=== PATIENT | female | born 1935 | race Caucasian/White ===

== ENCOUNTER 2016-09-08 09:29 | Inpatient (IN) ==
[2016-09-08] MEDS ORDERED: 0.9 % SODIUM CHLORIDE 1,000 ML IV ONE (10:08)
[2016-09-08] MEDS ORDERED: cefTRIAXone 1 GM in DEXTROSE 5% IN WATER 50 ML IV ONE ×2 (10:09→15:00)
[2016-09-08] MEDS ORDERED: DILTIAZEM 125 MG in 0.9 % SODIUM CHLORIDE 100 ML IV SCH (10:15)
[2016-09-08] MEDS ORDERED: FUROSEMIDE 40 MG/4 ML VIAL IV ONE (10:15)
[2016-09-08] MEDS ORDERED: DILTIAZEM 25 MG/5 ML VIAL IV ONE (10:50)
[2016-09-08 11:25] LABS: Basophils # (Auto) 0 K/mcL (0.0-0.3); Basophils % (Auto) 0.4 % (0.0-2.0); Eosinophils # (Auto) 0.1 K/mcL (0.0-0.7); Eosinophils % (Auto) 2.3 % (0.0-7.0); Lymphocytes # (Auto) 1.2 K/mcL (1.5-4.8); Lymphocytes % (Auto) 24.3 % (15.5-49.0); Mean Cell Volume 101.6 fL (80.0-100.0); Mean Corpuscular HGB Conc 33.6 g/dL (31.0-36.0); Mean Corpuscular Hemoglobin 34.1 pg (26.0-34.0); Monocytes # (Auto) 0.5 K/mcL (0.1-0.9); Platelet Count 187 K/mcL (140-440); RBC 3.87 M/mcL (4.00-5.20); Red Cell Distribution Width 13.7 % (11.5-14.5)
[2016-09-08 11:44] LABS: ALT/SGPT 9 U/l (0-40); Albumin 3.8 gm/dL (3.2-5.2); Albumin/Globulin Ratio 1.2 (1.0-2.3); Alkaline Phosphatase 102 U/L (39-117); Blood Urea Nitrogen 9 mg/dl (8-23)
[2016-09-08] MEDS ORDERED: DIGOXIN 500 MCG/2 ML AMPUL IV ONE (12:19)
--- NOTE | 2016-09-08 12:19 | Emergency Department Note ---
Skin/Abscess/FB HPI - General Chief complaint: Skin/Abscess/Foreign Body Stated complaint: Rash to chin, redness to eyes Time Seen by Provider: 09/08/16 09:59 Source: patient, RN notes reviewed, old records reviewed Mode of arrival: ambulatory Limitations: altered mental status - History of Present Illness HPI Narrative: 81-year-old female resident of [place] is brought over for history of rash on the face. She is unable to give me much meaningful history or review of system secondary to multiple mental issues- history is a combination of medical record review and her answers. It appears that she's had a red weeping rash in various locations on her face going into her left ear- she's been treated with a course of Bactrim and MetroGel over the last 2 weeks prior to coming in. She completed that course but it does not appear to have worked. The rash is worst at her chin and weeps yellowish liquid. Denies shortness of breath but is having worsening bilateral lower extremity edema. Complains of some bilateral toe pain. Cannot recall any trauma - Related Data Home Medications Medication Instructions Recorded Confirmed Aspirin [Lite Coat Aspirin] 325 mg PO DAILY 05/19/16 09/09/16 Baclofen [Lioresal] 10 mg PO HS 05/19/16 09/09/16 Cholestyramine/Aspartame 4 gm PO BID 05/19/16 09/09/16 [Prevalite Packet] Hydrochlorothiazide [Oretic] 12.5 mg PO DAILY 05/19/16 09/09/16 Hydrochlorothiazide [Oretic] 25 mg PO DAILY 05/19/16 09/09/16 LORazepam [Ativan] 0.5 mg PO BID 05/19/16 09/09/16 Levothyroxine [Synthroid] 150 mcg PO DAILY 05/19/16 09/09/16 Montelukast [Singular] 10 mg PO HS 05/19/16 09/09/16 Omeprazole 40 mg PO DAILY 05/19/16 09/09/16 Acetaminophen [Tylenol] 650 mg PO Q4-6HP PRN 09/09/16 09/09/16 Artificial Tears Drops 2 drop BOTH EYES BID 09/09/16 09/09/16 Calcium 600 + Vit D Tablet 600 mg PO DAILY 09/09/16 09/09/16 LORazepam 0.25 mg PO BIDP PRN 09/09/16 09/09/16 Magnesium Carbonate/Al Hydrox 15 ml PO Q4HP PRN 09/09/16 09/09/16 Nystatin [Nyata] 1 applic TOPICAL BIDP PRN 09/09/16 09/09/16 Polyethylene Glycol 3350 [Miralax] 17 gm PO HS 09/09/16 09/09/16 Previous Rx's Medication Instructions Recorded Ciprofloxacin/Dexameth Otic 4 gtt AU BID #7.5 ml 08/15/16 [Ciprodex Otic Suspension] Allergies Allergy/AdvReac Type Severity Reaction Status Date / Time Penicillins Allergy Unknown Unknown Verified 09/08/16 14:27 Review of Systems All systems ED: reviewed and negative except as stated. Past Medical History - Past Medical History Medical history: Reports: asthma, GERD, hypertension, thyroid disease, other ( incontinence) Surgical history ED: Reports: cataract, cholecystectomy, orthopedic, other (hip) , pacemaker/AICD Psychiatric history: Reports: schizophrenia - Social History smoking status: Unknown if ever smoked Alcohol use: Reports: Unknown Drug use: Reports: unknown Physical Exam Overweight female no acute distress resting comfortably. No cephalic atraumatic. Conjunctiva bilaterally injected with drainage bilateral lower eyelids, yellow viscous. Significant blepharitis with red flaky skin periorbital. Multiple large patches 10-15 cm in diameter varies places around her head neck and going into her right ear with erythematous confluent inflamed skin and weeping yellowish crust. There does appear to be some seborrhea content to some of these areas as well. Tender. Some of the areas with active drainage are cultured. No nasal discharge but some audible congestion. Oropharynx is pink and moist. Neck is supple without lymphadenopathy or thyromegaly. No carotid bruit. Heart is irregularly irregular rhythm tachycardic. Lungs are basically clear to auscultation bilaterally without wheezes rales rhonchi or respiratory distress abdomen is soft nontender nondistended. +2 radial pulse. +2-3 pedal edema bilaterally tender without erythema or chronic venous stasis changes. I do not see any weeping or lesions on the feet or ankles. Her toes have bilaterally onychmycosis. She is alert but unclear if completely oriented. She speaks slowly without dysarthria, this does appear to be her neurologic baseline - General Limitations: no limitations Course Vital Signs Temperature 96.9 F L 09/08/16 09:29 Pulse Rate 129 H 09/08/16 09:29 Respiratory Rate 16 09/08/16 09:29 Blood Pressure 132/72 09/08/16 09:29 Pulse Oximetry (%) 97 09/08/16 09:29 Temperature 97.6 F 09/09/16 04:00 Pulse Rate 104 H 09/08/16 19:40 Respiratory Rate 16 09/09/16 04:00 Blood Pressure 109/35 09/09/16 06:02 Pulse Oximetry (%) 98 09/09/16 06:02 Skin/Abscess/Foreign Body - Lab Data Lab results reviewed: Yes I reviewed the patient's lab results. Result diagrams: 09/09/16 03:55 09/09/16 03:55 Lab Results 09/08/16 09/08/16 09/08/16 Range/Units 10:35 10:35 10:35 WBC 5.0 (4.5-11.0) K/mcL RBC 3.87 L (4.00-5.20) M/mcL Hgb 13.2 (12.0-15.0) g/dL Hct 39.3 (36.0-48.0) % MCV 101.6 H (80.0-100.0) fL MCH 34.1 H (26.0-34.0) pg MCHC 33.6 (31.0-36.0) g/dL RDW 13.7 (11.5-14.5) % Plt Count 187 (140-440) K/mcL MPV 7.5 (7.4-10.4) fL Gran % 63.0 (38.0-78.0) % Lymph % (Auto) 24.3 (15.5-49.0) % [place] % (Auto) 10.0 (1.0-12.0) % Eos % (Auto) 2.3 (0.0-7.0) % Baso % (Auto) 0.4 (0.0-2.0) % Gran # 3.2 (1.8-8.0) K/mcL Lymph # 1.2 L (1.5-4.8) K/mcL [place] # 0.5 (0.1-0.9) K/mcL Eos # 0.1 (0.0-0.7) K/mcL Baso # 0 (0.0-0.3) K/mcL VBG Lactic Acid 1.5 (0.5-2.2) mmol/L Sodium 136 (133-145) mmol/L Potassium 3.9 (3.3-5.1) mmol/L Chloride 98 (96-108) mmol/L Carbon Dioxide 23 (22-30) mmol/L Anion Gap 15.0 (8-16) BUN 9 (8-23) mg/dl Creatinine 0.7 (0.6-1.1) mg/dl GFR Calculation 81 Glucose 86 (70-105) mg/dL Calcium 9.1 (8.6-10.4) mg/dl Total Bilirubin 0.6 (0.0-1.0) mg/dL AST 17 (0-37) U/l ALT 9 (0-40) U/l Alkaline Phosphatase 102 (39-117) U/L Troponin T (0-0.03) ng/ml C-Reactive Protein (0.0-0.8) mg/dl NT-Pro-B Natriuret Pep (0-450) pg/ml Total Protein 7.1 (5.9-8.4) gm/dL Albumin 3.8 (3.2-5.2) gm/dL Globulin 3.3 (2.2-3.7) gm/dL Albumin/Globulin Ratio 1.2 (1.0-2.3) 09/08/16 09/08/16 09/08/16 Range/Units 10:35 10:35 10:35 WBC (4.5-11.0) K/mcL RBC (4.00-5.20) M/mcL Hgb (12.0-15.0) g/dL Hct (36.0-48.0) % MCV (80.0-100.0) fL MCH (26.0-34.0) pg MCHC (31.0-36.0) g/dL RDW (11.5-14.5) % Plt Count (140-440) K/mcL MPV (7.4-10.4) fL Gran % (38.0-78.0) % Lymph % (Auto) (15.5-49.0) % [place] % (Auto) (1.0-12.0) % Eos % (Auto) (0.0-7.0) % Baso % (Auto) (0.0-2.0) % Gran # (1.8-8.0) K/mcL Lymph # (1.5-4.8) K/mcL [place] # (0.1-0.9) K/mcL Eos # (0.0-0.7) K/mcL Baso # (0.0-0.3) K/mcL VBG Lactic Acid (0.5-2.2) mmol/L Sodium (133-145) mmol/L Potassium (3.3-5.1) mmol/L Chloride (96-108) mmol/L Carbon Dioxide (22-30) mmol/L Anion Gap (8-16) BUN (8-23) mg/dl Creatinine (0.6-1.1) mg/dl GFR Calculation Glucose (70-105) mg/dL Calcium (8.6-10.4) mg/dl Total Bilirubin (0.0-1.0) mg/dL AST (0-37) U/l ALT (0-40) U/l Alkaline Phosphatase (39-117) U/L Troponin T < 0.01 (0-0.03) ng/ml C-Reactive Protein 0.3 (0.0-0.8) mg/dl NT-Pro-B Natriuret Pep 765.4 H (0-450) pg/ml Total Protein (5.9-8.4) gm/dL Albumin (3.2-5.2) gm/dL Globulin (2.2-3.7) gm/dL Albumin/Globulin Ratio (1.0-2.3) - EKG Data EKG attestation: Yes I reviewed and interpreted this EKG. EKG results narrative: EKG shows atrial fibrillation with rapid ventricular response with a rate of 142 Disposition Clinical Impression: Impetigo, Atrial fibrillation with RVR Summary: There appear to be 2 issues here: Rash and new onset atrial fibrillation with RVR 1. Rash appears to be impetigo versus erysipelas- this is severe and she is failed outpatient therapy with Bactrim and MetroGel. Start Rocephin. Culture sent. 2. New onset atrial fibrillation with RVR- attempted rate control first with Cardizem drip but this had no effect. Gave one dose of metoprolol and her blood pressure as well as rate decreased significantly to 110-120s from the 140s. She did not tolerate that well, so this was stopped and restarted digoxin loading dose [address] Julio who agreed to accept the patient for further care as an inpatient. Disposition: Xfer As Inpt ([facility]) Condition: Serious
[2016-09-08] MEDS: METOPROLOL TARTRATE 5 MG/5 ML VIAL IV SCH ×3 (12:20→12:29)
[2016-09-08] MEDS ORDERED: ACETAMINOPHEN 325 MG TABLET PO PRN (14:09)
[2016-09-08] MEDS ORDERED: VANCOMYCIN PER PHARMACY IV SCH (14:09)
[2016-09-08] MEDS ORDERED: ONDANSETRON 4 MG/2 ML VIAL IV PRN (14:09)
[2016-09-08] MEDS ORDERED: POTASSIUM CHLORIDE 20 MEQ PACKET PO PRN (14:09)
[2016-09-08] MEDS ORDERED: traZODone HCL 50 MG TABLET PO PRN (14:09)
[2016-09-08] MEDS ORDERED: MAGNESIUM SULFATE 2 GM/50 ML BAG IV PRN (14:09)
[2016-09-08] MEDS ORDERED: ACETAMINOPHEN 1,000 MG/100 ML BOTTLE IV PRN (14:09)
[2016-09-08 14:31] LABS: C-Reactive Protein 0.3 mg/dl (0.0-0.8)
[2016-09-08] MEDS ORDERED: VANCOMYCIN 1,000 MG in 0.9 % SODIUM CHLORIDE 250 ML IV SCH (15:00)
[2016-09-08] MEDS: DILTIAZEM 125 MG in 0.9 % SODIUM CHLORIDE 100 ML IV SCH (15:10)
[2016-09-08] MEDS: 0.9 % SODIUM CHLORIDE 10 ML SYRINGE IV SCH ×2 (15:54→21:33)
[2016-09-08] MEDS ORDERED: METOPROLOL TARTRATE 5 MG/5 ML VIAL IV ONE (17:01)
[2016-09-08] MEDS: METOPROLOL TARTRATE 5 MG/5 ML VIAL IV ONE ×2 (17:03→18:15)
--- NOTE | 2016-09-08 19:45 | Ultrasound Report ---
CLINICAL INFORMATION: Atrial fibrillation] vascular disease COMPARISON: None. TECHNIQUE: Carotid arteries were imaged in sagittal and transverse planes using 5 mHz linear probe: Doppler, color, and 2D. FINDINGS: See worksheet by the technologist for velocities in PACS Please correlate with CTA CT Angiography or MRA MR Angiography if surgery is contemplated. IMPRESSION: Both common, internal and external carotid arteries are widely patent. Fibrofatty and calcific plaque in both carotid bifurcation. Antegrade normal systolic blood flow in both vertebral arteries Interpreted and Authenticated by: Estrada English 09/08/16
[2016-09-08] MEDS ORDERED: FUROSEMIDE 20 MG/2 ML VIAL IV ONE ×2 (20:06→20:08)
[2016-09-08] MEDS ORDERED: SENNOSIDES/DOCUSATE SODIUM 1 TAB TABLET PO SCH (21:00)
[2016-09-08] MEDS: HEPARIN 5,000 UNIT/ML VIAL SQ SCH (21:32)
[2016-09-08] MEDS: DOCUSATE SODIUM 100 MG CAPSULE PO SCH (21:33)
[2016-09-08] MEDS: METOPROLOL SUCCINATE 50 MG TAB.XL.24H PO SCH (21:33)
[2016-09-09] MEDS ORDERED: 0.9 % SODIUM CHLORIDE 250 ML IV SCH ×2 (01:15→11:10)
[2016-09-09] MEDS: 0.9 % SODIUM CHLORIDE 10 ML SYRINGE IV SCH ×3 (05:15→21:39)
[2016-09-09] MEDS: DILTIAZEM 125 MG in 0.9 % SODIUM CHLORIDE 100 ML IV SCH (05:22)
[2016-09-09 05:54] LABS: Mean Cell Volume 102.8 fL (80.0-100.0); Mean Corpuscular HGB Conc 32.8 g/dL (31.0-36.0); Mean Corpuscular Hemoglobin 33.7 pg (26.0-34.0); Platelet Count 185 K/mcL (140-440); RBC 3.87 M/mcL (4.00-5.20); Red Cell Distribution Width 13.6 % (11.5-14.5)
[2016-09-09 06:15] LABS: ALT/SGPT 9 U/l (0-40); Albumin 3.5 gm/dL (3.2-5.2); Alkaline Phosphatase 105 U/L (39-117); Bilirubin,Direct < 0.2 mg/dL (0.0-0.3); Blood Urea Nitrogen 15 mg/dl (8-23); Gamma Glutamyl Transpeptidase 9 U/L (5-36); Magnesium 1.8 mg/dL (1.6-2.5); Uric Acid 5.2 mg/dL (2.5-8.0)
[2016-09-09 06:56] LABS: Eosinophils % (Manual) 1 % (0-7); Lymphocytes % 19 % (15-49); Macrocytosis 1+ (NONE SEEN); Monocytes % (Manual) 10 % (1-12); Platelet Estimate NORMAL (NORMAL); RBC Morphology ABNORM (NORMAL); Segmented Neutrophils % 70 % (38-78)
[2016-09-09] MEDS ORDERED: FUROSEMIDE 20 MG TABLET PO SCH (08:00)
--- NOTE | 2016-09-09 08:17 | History and Physical Report ---
DATE OF ADMISSION: 09/08/2016 PRIMARY CARE PHYSICIAN: Preston Almendarez DATE OF ADMISSION: 09/08/2016 REASON FOR ADMISSION: Weakness, facial and neck rash, atrial fibrillation with RVR. HISTORY OF CHIEF COMPLAINT: Tamiko is an 81-year-old who comes to [facility] ER with extensive rash around the neck, face and chest that started roughly a week to 10 days ago. The patient has associated crusting, oozing but denies fever, headache, nausea, vomiting. She has gotten progressively weak, increasing weight gain, along with lower extremity lymphedema. She also has exertional dyspnea. She was evaluated in the ER. Initial workup was significant for atrial fibrillation with RVR and heart rate around 150. She was started on diltiazem drip while cultures were obtained and she was started on vancomycin/Rocephin for impetigo. At the time of examination, the patient is alert. She was able to answer some of the questions. She denies sick contacts. She denies recent or remote herpes infection. Denies hematuria, diarrhea. She appears fairly distressed with generalized facial and neck rash. REVIEW OF SYSTEMS: Ten-point review of system was performed; negative except the ones discussed above. PAST MEDICAL HISTORY: Significant for: 1. Degenerative joint disease. 2. Anxiety disorder. 3. Hypertension. 4. Seasonal allergy disorder. 5. GERD. 6. 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 CURRENT MEDICATIONS: Aspirin 325. Baclofen 10. Cholestyramine 4 grams twice daily Hydrochlorothiazide 37.5 daily. Lorazepam 0.25 twice daily. thyroxine 150 mg daily. Montelukast 10. Omeprazole 40. Oxybutynin 5. She was also recently treated on ciprofloxacin and sulfamethoxazole for impetigo. ALLERGIES: Known to PENICILLIN. FAMILY HISTORY: Significant for myocardial infarction, coronary artery disease in mother who at age 59, along with a history of hypertension in mother. PHYSICAL EXAMINATION: GENERAL EXAMINATION: The patient is alert, responsive. BMI 27. Height 5 feet 6 inches. VITAL SIGNS: Blood pressure 130/74, respiration 18, temperature 98.7, pulse 145, improving to mid 90s after digoxin, metoprolol, diltiazem. Saturations 96 percent on room air. HEENT: Pupils symmetric. Oral cavity dry. Head normocephalic. Extensive honey-crusted, ayers-crusted lesions along with surrounding erythema and small vesicles involving bilateral cheeks and angle of jaw, anterior neck, and upper shoulder. NECK: Otherwise no lymphadenopathy or jugular venous distention. CHEST: S1, S2, tachycardia, irregular rhythm. ESM grade 1. Diminished breath sounds at bases. ABDOMEN: Soft, pendulous. LOWER EXTREMITY EXAMINATION: 2+ pitting edema from mid thigh all the way to the ankle. Otherwise, no cyanosis or clubbing. No joint swelling. SKIN: No suspicious lesions, other than impetigo lesions as described above. PSYCHIATRIC: Alert, cooperative, mild anxiety. NEURO: Nonfocal. Moving all 4 extremities. Normal higher function. LABS AND IMAGING: White count 5, hemoglobin 13.2, platelets 187. Lactic acid 1.5. Sodium 130, potassium 3.9, creatinine 0.7, BUN 9. LFTs unremarkable. BNP 765. ASSESSMENT AND PLAN: An 81-year-old admitted with atrial fibrillation with rapid ventricular response. 1. Atrial fibrillation with rapid ventricular response. Inadequate rate control achieved on diltiazem drip, along with digoxin and metoprolol. Wean diltiazem drip. Continue metoprolol. 2. Generalized edema. Rule out history of underlying systolic heart failure. Echocardiogram. Continue diuresis. 3. Facial impetigo, likely streptococcal or staphylococcus. Continue Rocephin and vancomycin. De-escalate based on culture sensitivity results. Continue adequate local hygiene and care. 4. Prior medical issues including: History of hypertension: Continue hydrochlorothiazide. Hypothyroidism: Continue thyroxine. Gastroesophageal reflux disease: Continue PPI. PLAN FOR TODAY: 1. Admit as inpatient. 2. Telemetry monitoring in light of atrial fibrillation with RVR. 3. Metoprolol for rate control. 4. Diuresis. 5. Echocardiogram. 6. Broad antibiotic coverage, along with wound care. AA:estrella Job ID: [id number] Doc ID: [id number] Len MUNIZ
[2016-09-09] MEDS ORDERED: cefTRIAXone 2 GM in DEXTROSE 5% IN WATER 50 ML IV SCH (09:00)
[2016-09-09] MEDS: HEPARIN 5,000 UNIT/ML VIAL SQ SCH ×2 (09:00→21:34)
[2016-09-09] MEDS: METOPROLOL SUCCINATE 50 MG TAB.XL.24H PO SCH ×2 (09:00→21:34)
[2016-09-09] MEDS: DOCUSATE SODIUM 100 MG CAPSULE PO SCH ×2 (09:00→21:34)
--- NOTE | 2016-09-09 11:06 | Internal Med Progress Note ---
Medical - PN: Subj Patient information: Note initiated : 09/09/16 at 11:03 am Service Date, if different from initiated Date: [] Patient: Tamiko Mendoza 81 y/o F admitted on 09/08/16 for Rash to Chin, Redness to Eyes/AFib w/ RVR. Chief Complaint: [] Interval history: 09/08-patient admitted with A. fib RVR/facial erysipelas/cellulitis. Started on diltiazem drip however inadequate response and subsequently improved with IV digoxin and metoprolol. Admitted to telemetry. On IV vancomycin/Rocephin for empiric streptococcal/MRSA coverage. 09/09-patient doing well. Converted to sinus rhythm around 3 AM. Transfer to medical floor. Continue wound care/antibiotic coverage. Erysipelas improved significantly. no overnight fever chills nausea vomiting or concerns per nursing staff - Constitutional Vitals: Vital Signs Temp Pulse Resp BP Pulse Ox 99.0 F 69 16 115/47 95 09/09/16 07:54 09/09/16 07:54 09/09/16 07:54 09/09/16 07:54 09/09/16 07:54 Period Temp Pulse Resp BP Sys/Huang Pulse Ox Last 24 Hr 97.6 F-99.0 F 69-104 16-18 94-172/35-157 86-98 Intake and Output 09/08/16 09/09/16 09/09/16 21:59 05:59 13:59 Intake Total 617 / 617 272 / 272 50 / 50 Output Total 950 / 950 1525 / 1525 Balance -333 / -333 -1253 / -1253 50 / 50 Weight 194 lb 9.6 oz 194 lb 9.6 oz Patient Weight 09/10/16 05:59 Weight 194 lb 9.6 oz Intake & Output: Intake & Output 09/08/16 09/09/16 09/09/16 21:59 05:59 13:59 Intake Total 617 / 617 272 / 272 50 / 50 Output Total 950 / 950 1525 / 1525 Balance -333 / -333 -1253 / -1253 50 / 50 Weight 194 lb 9.6 oz 194 lb 9.6 oz Intake: IV 337 / 337 122 / 122 50 / 50 Sodium Chloride 0.9% 250 67 / 67 ml @ 20 mls/hr IV . [id number] [facility] Rx#: [id number] Cardizem 125 mg In Sodium 37 / 37 55 / 55 Chloride 0.9% 100 ml @ 5 MG/HR 5 mls/hr IV Q12H [facility] Rx#:[id number] Vancomycin 1,000 mg In 250 / 250 Sodium Chloride 0.9% 250 ml @ 250 mls/hr IV Q24H [facility] Rx#:[id number] Rocephin 1 gm In Dextrose 50 / 50 5% in Water 50 ml @ 100 mls/hr IV ONCE ONE Rx#: [id number] Rocephin 2 gm In Dextrose 50 / 50 5% in Water 50 ml @ 100 mls/hr IV Q24H [facility] Rx#: [id number] Oral 280 / 280 150 / 150 Output: Urine Catheter Amount 1525 / 1525 Void Amount 950 / 950 Other: Meal Dinner Percent of Meal Consumed 75% Feeding Ability Assist with Tray Set Up # Bowel Movements 1 1 General appearance: cooperative, no acute distress Exam: ayers honey crust lesionthe nasolabial fold neck and face No lymphedema Diminished breath sounds bases nonlabored breathing normal sinus rhythm Medical - PN: Obj Da - Labs CBC & Chem 7: 09/09/16 03:55 09/09/16 03:55 Labs: Abnormal Lab Results 09/09/16 09/09/16 03:55 03:55 RBC 3.87 L MCV 102.8 H RBC Morphology Abnorm A Macrocytosis 1+ A Glucose 113 H Meds: Medications Acetaminophen (Tylenol) 650 mg PO Q4-6HP PRN PRN Reason: PAIN/FEVER > 101 Last Admin: 09/09/16 01:23 Dose: 650 mg Docusate Sodium (Colace) 100 mg PO BID [facility] Last Admin: 09/09/16 09:00 Dose: 100 mg Furosemide (Lasix) 20 mg PO BIDD [facility] Last Admin: 09/09/16 09:00 Dose: 20 mg Heparin Sodium (Porcine) (Heparin) 5,000 unit SQ Q12 [facility] Last Admin: 09/09/16 09:00 Dose: 5,000 unit Diltiazem HCl 125 mg/ Sodium (Chloride) 125 mls @ 5 mls/hr IV Q12H M[facility]UGETA; 5 MG/HR PRN Reason: Protocol Last Admin: 09/09/16 05:22 Dose: Not Given Magnesium Sulfate (Magnesium Sulfate) 2 gm in 50 mls @ 50 mls/hr IV UD PRN PRN Reason: MG = or < 1.7 Acetaminophen (Ofirmev) 1,000 mg in 100 mls @ 200 mls/hr IV Q6HP PRN PRN Reason: PAIN/FEVER > 101 Ceftriaxone Sodium 2 gm/ (Dextrose) 50 mls @ 100 mls/hr IV Q24H [facility] Last Infusion: 09/09/16 11:02 Dose: Infused Vancomycin HCl 1,000 mg/ (Sodium Chloride) 250 mls @ 250 mls/hr IV Q24H [facility] Last Infusion: 09/08/16 17:40 Dose: Infused Sodium Chloride (Sodium Chloride 0.9%) 250 mls @ 20 mls/hr IV .[id number] [facility] Last Infusion: 09/09/16 05:19 Dose: Infused Metoprolol Succinate (Toprol Xl) 50 mg PO BID [facility] Last Admin: 09/09/16 09:00 Dose: 50 mg Ondansetron HCl (Zofran) 4 mg IV Q4-6HP PRN PRN Reason: Nausea And Vomiting Potassium Chloride (Klor-Con) 40 meq PO DAILYP PRN PRN Reason: K+ < 3.5 Senna/Docusate Sodium (Senna Plus Tablet) 1 tab PO HS [facility] Last Admin: 09/08/16 21:33 Dose: 1 tab Sodium Chloride (Saline Flush) 10 ml IV Q8 [facility] Last Admin: 09/09/16 05:15 Dose: 10 ml Trazodone HCl (Desyrel) 50 mg PO HSP PRN PRN Reason: Insomnia Vancomycin HCl (Vancomycin Per Pharmacy) 1 order IV [facility] Medical - PN: A/P - Time Spent With Patient Total time spent is greater than 50% in coordination of care (as documented) at patient's floor/unit and/or counseling patient: 15 - 24 minutes (1) Atrial fibrillation with RVR Status: Acute Assessment and plan: * atrial fibrillation with RVR-converted to sinus rhythm with digoxin/ metoprolol. unclear onset. No prior history of A. fib. * facial erysipelas-on antibiotic coverage for empiric strep/staph on vancomycin /Rocephin. Wound care consulted * history of CAD on aspirin * Hypertension on hydrochlorothiazide * Hypothyroidism on levothyroxin * Anxiety disorder - Ativan * DVT prophylaxis on heparin Plan * antibiotic coverage * Wound care consult * Transfer to medical floor * pre-existing medical condition management as above * Possible discharge in 24 hours Current Visit: Yes Medical - PN: Qual - VTE Deep Vein Thrombosis/Pulmonary Embolism Present on Admission: No
[2016-09-09] MEDS ORDERED: VANCOMYCIN PER PHARMACY IV SCH (11:10)
[2016-09-09] MEDS ORDERED: traZODone HCL 50 MG TABLET PO PRN (11:10)
[2016-09-09] MEDS ORDERED: ACETAMINOPHEN 1,000 MG/100 ML BOTTLE IV PRN (11:10)
[2016-09-09] MEDS ORDERED: POTASSIUM CHLORIDE 20 MEQ PACKET PO PRN (11:10)
[2016-09-09] MEDS ORDERED: MAGNESIUM SULFATE 2 GM/50 ML BAG IV PRN (11:10)
[2016-09-09] MEDS ORDERED: ONDANSETRON 4 MG/2 ML VIAL IV PRN (11:10)
[2016-09-09] MEDS ORDERED: ACETAMINOPHEN 325 MG TABLET PO PRN (11:10)
[2016-09-09] MEDS: VANCOMYCIN 1,000 MG in 0.9 % SODIUM CHLORIDE 250 ML IV SCH (14:56)
[2016-09-09] MEDS ORDERED: DILTIAZEM 125 MG in 0.9 % SODIUM CHLORIDE 100 ML IV PRN (15:00)
[2016-09-09] MEDS: FUROSEMIDE 20 MG TABLET PO SCH (15:09)
[2016-09-09] MEDS: SENNOSIDES/DOCUSATE SODIUM 1 TAB TABLET PO SCH (21:34)
[2016-09-09] MEDS: LORazepam 0.5 MG TABLET PO SCH (21:34)
[2016-09-10] MEDS: 0.9 % SODIUM CHLORIDE 10 ML SYRINGE IV SCH ×3 (05:12→21:58)
[2016-09-10 05:52] LABS: Mean Cell Volume 102.3 fL (80.0-100.0); Mean Corpuscular HGB Conc 33.3 g/dL (31.0-36.0); Mean Corpuscular Hemoglobin 34.1 pg (26.0-34.0); Platelet Count 179 K/mcL (140-440); RBC 3.63 M/mcL (4.00-5.20); Red Cell Distribution Width 13.7 % (11.5-14.5)
[2016-09-10 06:28] LABS: ALT/SGPT 20 U/l (0-40); Albumin 3.8 gm/dL (3.2-5.2); Albumin/Globulin Ratio 1.3 (1.0-2.3); Alkaline Phosphatase 106 U/L (39-117); Bilirubin,Direct < 0.2 mg/dL (0.0-0.3); Blood Urea Nitrogen 20 mg/dl (8-23); Gamma Glutamyl Transpeptidase 24 U/L (5-36); Magnesium 1.7 mg/dL (1.6-2.5); Uric Acid 5.1 mg/dL (2.5-8.0)
[2016-09-10] MEDS: FUROSEMIDE 20 MG TABLET PO SCH ×2 (07:32→16:19)
[2016-09-10 07:41] LABS: Eosinophils % (Manual) 4 % (0-7); Lymphocytes % 38 % (15-49); Macrocytosis 1+ (NONE SEEN); Monocytes % (Manual) 13 % (1-12); Platelet Estimate NORMAL (NORMAL); RBC Morphology ABNORM (NORMAL); Segmented Neutrophils % 45 % (38-78)
--- NOTE | 2016-09-10 07:52 | Echocardiogram Report ---
ECHOCARDIOGRAM: 2-D and M-mode echocardiography with cardiac Doppler and color flow imaging were performed with a [employer] Aplio MX. Indication is heart failure. A diagnostic M-mode tracing of the LV and mitral valve could not be obtained. Both atria appeared mildly enlarged. RV and LV cavity size appeared normal. LV wall thickness appeared mildly increased. Systolic performance appeared normal. Estimated ejection fraction is 55-60%. Aortic root diameter appeared normal. The aortic valve appeared trileaflet and normal. There was no evidence for aortic stenosis or aortic regurgitation by Doppler interrogation. The mitral and tricuspid valves appeared unremarkable. Doppler interrogation of LV inflow disclosed normal ''e'' wave dominance and normal early diastolic deceleration time. There was no evidence for mitral regurgitation. Pulmonary venous interrogation disclosed ''d'' wave dominance indicating elevated pulmonary wedge pressure. The pulmonic valve was not visualized. Pulmonary artery acceleration time appeared normal. There was no evidence for pulmonic stenosis or pulmonic regurgitation. Tricuspid regurgitation, probably mild (1+), was demonstrated. No intracardiac shunting was appreciated. There was no evidence for pericardial effusion. The IVC was borderline dilated and varied mildly with the respiratory cycle. Rough calculated estimate of PA systolic pressure is mildly elevated at 40 mmHg. Sinus rhythm, rate 60, was present. CONCLUSION:Mild concentric LVH with normal systolic performance. Mild LA enlargement, elevated pulmonary wedge/mild and probably passive pulmonary hypertension, mild RA enlargement and possible raised CVP. Since previous study 09/21/2010, presence of LVH and biatrial enlargement are appreciated. (See accompanying M-mode and Doppler reports for quantitation.) ECHOCARDIOGRAPHY M-MODE CALCULATIONS: HT: 66'' WT: 194 BSA: 1.97 m2 NORMALS AORTA: AORTIC ROOT 3.0 2.0-3.7 cm LEFT ATRIUM 3.5 1.9-4.0 cm MITRAL VALVE: EXCURSION -- 1.9-2.7 cm EPSS -- <0.5 cm LT VENTRICLE: LVID (ED) -- 3.5-5.7 cm LVID (ES) -- SEPTAL THICKNESS -- 0.6-1.1 cm SEPTAL EXCURSION -- 0.3-0.8 cm LVPW THICKNESS -- 0.6-1.1 cm LVPW EXCURSION -- 0.9-1.4 cm MINOR AXIS FS -- 25%-40% RT VENTRICLE: RVID (ED) -- 0.9-2.6 cm(up to 3cm if LLD) QUALITATIVE DOPPLER FLOW STUDIES MITRAL VALVE -- AORTIC VALVE -- TRICUSPID VALVE TR, probably mild (1+) PULMONIC VALVE -- QUANTITATIVE DOPPLER FLOW STUDIES SAMPLE SITES VELOCITIES PEAK PRESSURE VALVE AREA and/or VALVE WINDOW (PEAK,M/SEC) DROP (GRADIENT) PRESSURE HALF-TIME MV (Diastole) 1.1 0.7 -- -- MV (Systole) -- -- -- AO (Diastole) -- -- -- AO (Systole) 1.4 -- -- TV (Systole) 2.5 -- -- PV (Systole) 1.0 -- -- PV (Diastole) -- LWG:samuel Job ID: [id number] Doc ID: [id number] Gama Braswell MD
--- NOTE | 2016-09-10 08:39 | General Surgery Consult Note ---
History of Present Illness Patient information: Note initiated : 09/10/16 at 8:35 am Service Date, if different from initiated Date: [] Patient: Tamiko Mendoza 81 y/o F admitted on 09/08/16 for Rash to Chin, Redness to Eyes/AFib w/ RVR. Chief Complaint: [] Consult date: 09/10/16 Requesting physician: Len Bhagat History of present illness: I saw this patient with [place] RN, Inpatient wound care nurse. I was consulted for evaluation of skin lesions / wounds of head and neck area. I went through EHR notes from ER physician. This is an elderly lady residing at an [facility] and has multiple medical issues, which are being addressed appropriately. She c/o persistent itching and scratching of face, eyes, Head and neck, especially scalp and over and behind both ears. Medications and Allergies Home Medications Medication Instructions Recorded Confirmed Type Aspirin [Lite Coat Aspirin] 325 mg PO DAILY 05/19/16 09/09/16 History Baclofen [Lioresal] 10 mg PO HS 05/19/16 09/09/16 History Cholestyramine/Aspartame 4 gm PO BID 05/19/16 09/09/16 History [Prevalite Packet] Hydrochlorothiazide [Oretic] 12.5 mg PO DAILY 05/19/16 09/09/16 History Hydrochlorothiazide [Oretic] 25 mg PO DAILY 05/19/16 09/09/16 History LORazepam [Ativan] 0.5 mg PO BID 05/19/16 09/09/16 History Levothyroxine [Synthroid] 150 mcg PO DAILY 05/19/16 09/09/16 History Montelukast [Singular] 10 mg PO HS 05/19/16 09/09/16 History Omeprazole 40 mg PO DAILY 05/19/16 09/09/16 History Ciprofloxacin/Dexameth Otic 4 gtt AU BID #7.5 ml 08/15/16 09/09/16 Rx [Ciprodex Otic Suspension] Acetaminophen [Tylenol] 650 mg PO Q4-6HP PRN 09/09/16 09/09/16 History Artificial Tears Drops 2 drop BOTH EYES BID 09/09/16 09/09/16 History Calcium 600 + Vit D Tablet 600 mg PO DAILY 09/09/16 09/09/16 History LORazepam 0.25 mg PO BIDP PRN 09/09/16 09/09/16 History Magnesium Carbonate/Al Hydrox 15 ml PO Q4HP PRN 09/09/16 09/09/16 History Nystatin [Nyata] 1 applic TOPICAL BIDP PRN 09/09/16 09/09/16 History Polyethylene Glycol 3350 [Miralax] 17 gm PO HS 09/09/16 09/09/16 History Allergies Allergy/AdvReac Type Severity Reaction Status Date / Time [place] Allergy Intermediate Hives Verified 09/09/16 15:42 Penicillins Allergy Unknown Unknown Verified 09/08/16 14:27 Exam Temp Pulse Resp BP Pulse Ox 98.2 F 68 18 165/83 94 09/10/16 07:02 09/10/16 07:08 09/10/16 07:02 09/10/16 07:02 09/10/16 07:08 - General physical appearance well developed, well nourished, no distress, no pain, other (UNKEMPT, LONG FINGERNAILS with crust, fugus under nails and nail beds SIMILAR to the crust over her face, scalp,hair, ramos area, ears and around eyes and eyebrows. She has conjuctivitis, but NORMAL vision. ) - Eyes PERRL, normal ocular movement, other (Blepharits and mild bilateral conjuctival irritation. INTACT vision.) - ENT no congestion, other (Crusted skin of both external ears and behind ears. NO mastoid tenderness. ) - Head Head exam IM: Present: atraumatic, normal inspection, normocephalic - Neck no masses, no bruits, trachea midline, no venous distension - Cardiovascular Cardiovascular exam IM: Present: irregular rhythm - Respiratory normal respiratory effort, clear to auscultation - Abdomen Abdomen: Present: soft, non tender, bowel sounds - Integumentary Present: other (DERMATITIS HEAD AND NECK AND SKIN FOLDS HAIR AND HAIR LINES, EAR LOBES ( FUNGAL ) SCALP CAPITIS ) - Neurologic Present: normal coordination, other (MOVES ALL EXTREMITIES. ) - Musculoskeletal Present: normal posture Results - Labs 09/10/16 04:35 09/10/16 04:35 Abnormal lab results 09/10/16 Range/Units 04:35 WBC 4.3 L (4.5-11.0) K/mcL RBC 3.63 L (4.00-5.20) M/mcL MCV 102.3 H (80.0-100.0) fL MCH 34.1 H (26.0-34.0) pg Monocytes % (Manual) 13 H (1-12) % RBC Morphology Abnorm A (NORMAL) Macrocytosis 1+ A (NONE SEEN) Diabetes panel 09/10/16 Range/Units 04:35 Sodium 140 (133-145) mmol/L Potassium 3.5 (3.3-5.1) mmol/L Chloride 103 (96-108) mmol/L Carbon Dioxide 24 (22-30) mmol/L BUN 20 (8-23) mg/dl Creatinine 0.6 (0.6-1.1) mg/dl Glucose 94 (70-105) mg/dL Calcium 8.9 (8.6-10.4) mg/dl AST 26 (0-37) U/l ALT 20 (0-40) U/l Alkaline Phosphatase 106 (39-117) U/L Total Protein 6.8 (5.9-8.4) gm/dL Albumin 3.8 (3.2-5.2) gm/dL Triglycerides 76 (<150) mg/dl Calcium panel 09/10/16 Range/Units 04:35 Calcium 8.9 (8.6-10.4) mg/dl Phosphorus 3.0 (2.7-4.5) mg/dL Albumin 3.8 (3.2-5.2) gm/dL Pituitary panel 09/10/16 Range/Units 04:35 Sodium 140 (133-145) mmol/L Potassium 3.5 (3.3-5.1) mmol/L Chloride 103 (96-108) mmol/L Carbon Dioxide 24 (22-30) mmol/L BUN 20 (8-23) mg/dl Creatinine 0.6 (0.6-1.1) mg/dl Glucose 94 (70-105) mg/dL Calcium 8.9 (8.6-10.4) mg/dl Adrenal panel 09/10/16 Range/Units 04:35 Sodium 140 (133-145) mmol/L Potassium 3.5 (3.3-5.1) mmol/L Chloride 103 (96-108) mmol/L Carbon Dioxide 24 (22-30) mmol/L BUN 20 (8-23) mg/dl Creatinine 0.6 (0.6-1.1) mg/dl Glucose 94 (70-105) mg/dL Calcium 8.9 (8.6-10.4) mg/dl Total Bilirubin 0.5 (0.0-1.0) mg/dL AST 26 (0-37) U/l ALT 20 (0-40) U/l Alkaline Phosphatase 106 (39-117) U/L Total Protein 6.8 (5.9-8.4) gm/dL Albumin 3.8 (3.2-5.2) gm/dL All other labs normal. Assessment and Plan (1) Dermatitis due to food skin contact Recommend: ELECTIVE OUT PATIENT DERMATOLOGY EVALUATION; For now: Trim all finger nails. Antifungal soap for head to toe body washes Hibiclens or Chlorhexidine head to toe body wash or showers daily Clean and wash face with chlorhexidine soaked wash cloth three to four times a day. Clean cotton sheets and clothes. Will continue to see her again as appropriate. Status: Chronic Priority: Medium (2) Dermatitis due to oils or greases Status: Acute (3) Dermatitis fungal Status: Acute (4) Otitis externa Status: Acute
--- NOTE | 2016-09-10 09:30 | Internal Med Progress Note ---
Medical - PN: Subj Patient information: Note initiated : 09/10/16 at 9:26 am Service Date, if different from initiated Date: [] Patient: Tamiko Mendoza 81 y/o F admitted on 09/08/16 for Rash to Chin, Redness to Eyes/AFib w/ RVR. Chief Complaint: [] Interval history: 09/08-patient admitted with A. fib RVR/facial erysipelas/cellulitis. Started on diltiazem drip however inadequate response and subsequently improved with IV digoxin and metoprolol. Admitted to telemetry. On IV vancomycin/Rocephin for empiric streptococcal/MRSA coverage. 09/09-patient doing well. Converted to sinus rhythm around 3 AM. Transfer to medical floor. Continue wound care/antibiotic coverage. Erysipelas improved significantly. no overnight fever chills nausea vomiting or concerns per nursing staff 09/10-staph aureus on cultures. wound care ongoing. Hibiclens wash/IV antibiotics. De-escalate antibiotics based on culture sensitivities. No overnight fever chills. Patient in sinus rhythm. Stabilizing hemodynamics and no concerns per staff - Constitutional Vitals: Vital Signs Temp Pulse Resp BP Pulse Ox 98.2 F 68 18 165/83 94 09/10/16 07:02 09/10/16 07:08 09/10/16 07:02 09/10/16 07:02 09/10/16 07:08 Period Temp Pulse Resp BP Sys/Huang Pulse Ox Last 24 Hr 97.6 F-98.6 F 64-73 16-20 132-165/65-83 94-98 Intake and Output 09/09/16 09/10/16 09/10/16 21:59 05:59 13:59 Intake Total 250 / 250 250 / 250 240 / 240 Output Total 950 / 950 225 / 225 100 / 100 Balance -700 / -700 25 / 25 140 / 140 Weight 195 lb Intake & Output: Intake & Output 09/09/16 09/10/16 09/10/16 21:59 05:59 13:59 Intake Total 250 / 250 250 / 250 240 / 240 Output Total 950 / 950 225 / 225 100 / 100 Balance -700 / -700 25 / 25 140 / 140 Weight 195 lb Intake: IV 250 / 250 Vancomycin 1,000 mg In 250 / 250 Sodium Chloride 0.9% 250 ml @ 250 mls/hr IV Q24H [facility] Rx#:[id number] Oral 250 / 250 240 / 240 Output: Urine Catheter Amount 500 / 500 Void Amount 450 / 450 225 / 225 100 / 100 Other: Meal Breakfast Percent of Meal Consumed 100% # Voids 1 General appearance: cooperative, no acute distress Exam: alert oriented nonlabored breathing Nondistended abdomen no anxiety heart of hearing Medical - PN: Obj Da - Labs CBC & Chem 7: 09/10/16 04:35 09/10/16 04:35 Labs: Abnormal Lab Results 09/10/16 09/09/16 09/09/16 04:35 03:55 03:55 WBC 4.3 L RBC 3.63 L 3.87 L MCV 102.3 H 102.8 H MCH 34.1 H Monocytes % (Manual) 13 H RBC Morphology Abnorm A Abnorm A Macrocytosis 1+ A 1+ A Glucose 113 H Meds: Medications Acetaminophen (Tylenol) 650 mg PO Q4-6HP PRN PRN Reason: PAIN/FEVER > 101 Docusate Sodium (Colace) 100 mg PO BID [facility] Last Admin: 09/09/16 21:34 Dose: 100 mg Furosemide (Lasix) 20 mg PO BIDD [facility] Last Admin: 09/10/16 07:32 Dose: 20 mg Heparin Sodium (Porcine) (Heparin) 5,000 unit SQ Q12 [facility] Last Admin: 09/09/16 21:34 Dose: 5,000 unit Diltiazem HCl 125 mg/ Sodium (Chloride) 125 mls @ 5 mls/hr IV Q12HP PRN; Protocol; 5 MG/HR PRN Reason: Tachyarrhythmias Magnesium Sulfate (Magnesium Sulfate) 2 gm in 50 mls @ 50 mls/hr IV UD PRN PRN Reason: MG = or < 1.7 Acetaminophen (Ofirmev) 1,000 mg in 100 mls @ 200 mls/hr IV Q6HP PRN PRN Reason: PAIN/FEVER > 101 Vancomycin HCl 1,000 mg/ (Sodium Chloride) 250 mls @ 250 mls/hr IV Q24H [facility] Last Infusion: 09/09/16 17:30 Dose: Infused Ceftriaxone Sodium 2 gm/ (Dextrose) 50 mls @ 100 mls/hr IV Q24H [facility] Lorazepam (Ativan) 0.5 mg PO BID [facility] Last Admin: 09/09/16 21:34 Dose: 0.5 mg Metoprolol Succinate (Toprol Xl) 50 mg PO BID [facility] Last Admin: 09/09/16 21:34 Dose: 50 mg Ondansetron HCl (Zofran) 4 mg IV Q4-6HP PRN PRN Reason: Nausea And Vomiting Potassium Chloride (Klor-Con) 40 meq PO DAILYP PRN PRN Reason: K+ < 3.5 Senna/Docusate Sodium (Senna Plus Tablet) 1 tab PO HS [facility] Last Admin: 09/09/16 21:34 Dose: 1 tab Sodium Chloride (Saline Flush) 10 ml IV Q8 [facility] Last Admin: 09/10/16 05:12 Dose: 10 ml Trazodone HCl (Desyrel) 50 mg PO HSP PRN PRN Reason: Insomnia Vancomycin HCl (Vancomycin Per Pharmacy) 1 order IV UD [facility] Medical - PN: A/P - Time Spent With Patient Total time spent is greater than 50% in coordination of care (as documented) at patient's floor/unit and/or counseling patient: 15 - 24 minutes (1) Atrial fibrillation with RVR Status: Acute Assessment and plan: * Facial erysipelas/Impetigo-staph aureus on cultures. clinically improving with IV antibiotics/wound care and Hibiclens wash. * Atrial fibrillation with RVR-converted to sinus rhythm with digoxin/ metoprolol. unclear onset. No prior history of A. fib. * history of CAD on aspirin * Hypertension on hydrochlorothiazide * Hypothyroidism on levothyroxin * Anxiety disorder - Ativan * DVT prophylaxis on heparin Plan * de-escalate ABX based on cultures * continue wound care * discharge in 24 hours once sensitivity available Current Visit: Yes Medical - PN: Qual - VTE Deep Vein Thrombosis/Pulmonary Embolism Present on Admission: No
[2016-09-10] MEDS: cefTRIAXone 2 GM in DEXTROSE 5% IN WATER 50 ML IV SCH (10:00)
[2016-09-10] MEDS: METOPROLOL SUCCINATE 50 MG TAB.XL.24H PO SCH ×2 (10:06→21:47)
[2016-09-10] MEDS: HEPARIN 5,000 UNIT/ML VIAL SQ SCH ×2 (10:06→21:47)
[2016-09-10] MEDS: DOCUSATE SODIUM 100 MG CAPSULE PO SCH ×2 (10:06→21:47)
[2016-09-10] MEDS: LORazepam 0.5 MG TABLET PO SCH ×2 (10:07→21:47)
[2016-09-10] MEDS ORDERED: VANCOMYCIN 1,000 MG in 0.9 % SODIUM CHLORIDE 250 ML IV SCH (16:00)
[2016-09-10] MEDS: VANCOMYCIN 750 MG in 0.9 % SODIUM CHLORIDE 250 ML IV SCH (16:10)
[2016-09-10] MEDS: VANCOMYCIN 1,000 MG in 0.9 % SODIUM CHLORIDE 250 ML IV SCH (19:23)
[2016-09-10] MEDS: SENNOSIDES/DOCUSATE SODIUM 1 TAB TABLET PO SCH (21:47)
[2016-09-11] MEDS: VANCOMYCIN 750 MG in 0.9 % SODIUM CHLORIDE 250 ML IV SCH (03:56)
[2016-09-11] MEDS: 0.9 % SODIUM CHLORIDE 10 ML SYRINGE IV SCH (05:40)
[2016-09-11 05:41] LABS: Mean Cell Volume 101.7 fL (80.0-100.0); Mean Corpuscular HGB Conc 33.5 g/dL (31.0-36.0); Mean Corpuscular Hemoglobin 34.1 pg (26.0-34.0); Platelet Count 168 K/mcL (140-440); RBC 3.48 M/mcL (4.00-5.20); Red Cell Distribution Width 13.3 % (11.5-14.5)
[2016-09-11 06:19] LABS: ALT/SGPT 15 U/l (0-40); Albumin 3.4 gm/dL (3.2-5.2); Albumin/Globulin Ratio 1.1 (1.0-2.3); Alkaline Phosphatase 100 U/L (39-117); Bilirubin,Direct < 0.2 mg/dL (0.0-0.3); Blood Urea Nitrogen 19 mg/dl (8-23); Gamma Glutamyl Transpeptidase 18 U/L (5-36); Magnesium 2.2 mg/dL (1.6-2.5); Uric Acid 4.9 mg/dL (2.5-8.0)
[2016-09-11 07:54] LABS: Eosinophils % (Manual) 3 % (0-7); Lymphocytes % 58 % (15-49); Macrocytosis 1+ (NONE SEEN); Monocytes % (Manual) 8 % (1-12); Platelet Estimate NORMAL (NORMAL); RBC Morphology ABNORM (NORMAL); Segmented Neutrophils % 31 % (38-78)
[2016-09-11] MEDS: DOCUSATE SODIUM 100 MG CAPSULE PO SCH (08:35)
[2016-09-11] MEDS: METOPROLOL SUCCINATE 50 MG TAB.XL.24H PO SCH (08:35)
[2016-09-11] MEDS: cefTRIAXone 2 GM in DEXTROSE 5% IN WATER 50 ML IV SCH (08:35)
[2016-09-11] MEDS: LORazepam 0.5 MG TABLET PO SCH (08:35)
[2016-09-11] MEDS: FUROSEMIDE 20 MG TABLET PO SCH (08:35)
[2016-09-11] MEDS: HEPARIN 5,000 UNIT/ML VIAL SQ SCH (08:36)
--- NOTE | 2016-09-11 09:46 | Discharge Summary ---
Medical - DS: Prov Patient information: Note initiated : 09/11/16 at 9:42 am Service Date, if different from initiated Date: [] Patient: Tamiko Mendoza 81 y/o F admitted on 09/08/16 for Rash to Chin, Redness to Eyes/AFib w/ RVR. Chief Complaint: [] Date of admission: 09/08/16 14:05 Discharge date: 09/11/16 Primary care physician: [f_Reg Prim Care Provider] Consults: 09/09/16 07:38 Consult to Physician [CONS] Routine Comment: late entry 1226, 09/08/16 Consulting Provider: Len Bhagat Reason For Exam: Physician to Consult 09/09/16 10:26 Consult to Physician [CONS] Routine Comment: Consulting Provider: Justin Evans Reason For Exam: Physician to Consult Medical - DS: Meds - Discharge Medications Prescriptions: Cephalexin [Keflex] 500 mg PO BID #10 capsule Active and Home Medications: Home Medications Aspirin [Lite Coat Aspirin] 325 mg PO DAILY 05/19/16 [History Confirmed Last Taken 09/07/16 11:30] Baclofen [Lioresal] 10 mg PO HS 05/19/16 [History Confirmed 09/09/16 Last Taken 09/07/16 19:30] Cholestyramine/Aspartame [Prevalite Packet] 4 gm PO BID 05/19/16 [History Confirmed 09/09/16 Last Taken 09/08/16 09:00] Hydrochlorothiazide [Oretic] 12.5 mg PO DAILY 05/19/16 [History Confirmed Last Taken 09/07/16 07:00] Hydrochlorothiazide [Oretic] 25 mg PO DAILY 05/19/16 [History Confirmed Last Taken 09/06/16 07:00] LORazepam [Ativan] 0.5 mg PO BID 05/19/16 [History Confirmed 09/09/16 Last Taken 09/07/16 15:00] Levothyroxine [Synthroid] 150 mcg PO DAILY 05/19/16 [History Confirmed 09/09/16 Last Taken 09/06/16 07:00] Montelukast [Singular] 10 mg PO HS 05/19/16 [History Confirmed 09/09/16 Last Taken 09/07/16 19:30] Omeprazole 40 mg PO DAILY 05/19/16 [History Confirmed 09/09/16 Last Taken 15:00] Ciprofloxacin/Dexameth Otic [Ciprodex Otic Suspension] 4 gtt AU BID #7.5 ml [Rx Confirmed 09/09/16 Last Taken 08/25/16 09:00] Acetaminophen [Tylenol] 650 mg PO Q4-6HP PRN 09/09/16 [History Confirmed Last Taken Unknown] Artificial Tears Drops 2 drop BOTH EYES BID 09/09/16 [History Confirmed Last Taken 09/07/16 19:30] Calcium 600 + Vit D Tablet 600 mg PO DAILY 09/09/16 [History Confirmed 09/09/16 Last Taken 09/07/16 19:30] LORazepam 0.25 mg PO BIDP PRN 09/09/16 [History Confirmed 09/09/16 Last Taken Unknown] Magnesium Carbonate/Al Hydrox 15 ml PO Q4HP PRN 09/09/16 [History Confirmed Last Taken 08/25/16 10:00] Nystatin [Nyata] 1 applic TOPICAL BIDP PRN 09/09/16 [History Confirmed 09/09/16 Last Taken Unknown] Polyethylene Glycol 3350 [Miralax] 17 gm PO HS 09/09/16 [History Confirmed 09/09 Last Taken 09/07/16 19:30] Cephalexin [Keflex] 500 mg PO BID #10 capsule 09/11/16 [Rx Last Taken Unknown] Medical - DS: Hosp Hospital course: DISCHARGE DIAGNOSIS * Facial erysipelas/Impetigo- remarkable improvement of IV antibiotics. MSSA on cultures. dictated for additional 5 days Keflex. Follow-up with dermatology in 1 week if persistent for underlying rosacea management. * Atrial fibrillation with RVR-converted to sinus rhythm after initial rate control on digoxin/metoprolol. No prior history of A. fib. no further treatment necessary unless paroxysms of atrial fibrillation noted. * history of CAD on aspirin * Hypertension on hydrochlorothiazide * Hypothyroidism on levothyroxin * Anxiety disorder - Ativan BRIEF HOSPITAL COURSE 09/08-patient admitted with A. fib RVR/facial erysipelas/cellulitis. Started on diltiazem drip however inadequate response and subsequently improved with IV digoxin and metoprolol. Admitted to telemetry. On IV vancomycin/Rocephin for empiric streptococcal/MRSA coverage. 09/09-patient doing well. Converted to sinus rhythm around 3 AM. Transfer to medical floor. Continue wound care/antibiotic coverage. Erysipelas improved significantly. no overnight fever chills nausea vomiting or concerns per nursing staff 09/10-staph aureus on cultures. wound care ongoing. Hibiclens wash/IV antibiotics. De-escalate antibiotics based on culture sensitivities. No overnight fever chills. Patient in sinus rhythm. Stabilizing hemodynamics and no concerns per staff 09/11- patient doing well. No overnight events. Ambulating and tolerating physical therapy. Tolerating diet. Facial restless much improved. Continue Hibiclens face wash as per wound care physician and additional 5 days oral Keflex. Outpatient dermatology consult in 1 week Discharge diagnosis: . - Time Spent with Patient Total time spent providing and/or coordinating discharge services: Greater than 30 minutes Medical - DS: Exam - Constitutional Vitals: Vital Signs Temp Pulse Pulse Resp BP Pulse Ox 09/11/16 07:44 97.5 F L 61 14 137/78 94 09/11/16 06:59 64 95 09/11/16 04:00 98.0 F 63 14 132/72 93 09/10/16 23:43 98.2 F 76 14 136/84 95 09/10/16 19:13 97.9 F 73 14 133/87 96 09/10/16 16:16 98.0 F 65 15 144/74 94 09/10/16 11:00 97.5 F L 73 18 150/69 96 Intake and Output 09/10/16 09/11/16 09/11/16 21:59 05:59 13:59 Intake Total 490 / 490 700 / 700 Output Total 651 / 651 Balance 489 / 489 49 / 49 Intake: IV 250 / 250 Vancomycin 750 mg In 250 / 250 Sodium Chloride 0.9% 250 ml @ 250 mls/hr IV Q12H [facility] Rx#:[id number] Oral 240 / 240 700 / 700 Output: Urine Catheter Amount 600 / 600 Void Amount 50 / 50 # of times incontinent of urine Other: Meal Dinner Percent of Meal Consumed 100% Feeding Ability Independent Weight 195 lb Medical - DS: Data Labs on day of discharge: Labs from last 24 hours 09/11/16 09/11/16 09/10/16 04:30 04:30 14:56 WBC 4.0 L RBC 3.48 L Hgb 11.9 L Hct 35.4 L MCV 101.7 H MCH 34.1 H MCHC 33.5 RDW 13.3 Plt Count 168 MPV 7.5 Total Counted 100 Seg Neutrophils % 31 L Band Neutrophils % Not Reportable Lymphocytes % 58 H Monocytes % (Manual) 8 Eosinophils % (Manual) 3 Platelet Estimate Normal RBC Morphology Abnorm A Macrocytosis 1+ A Sodium 140 Potassium 3.9 Chloride 103 Carbon Dioxide 25 Anion Gap 12.0 BUN 19 Creatinine 0.6 GFR Calculation 85 Glucose 90 Uric Acid 4.9 Calcium 8.9 Phosphorus 3.3 Magnesium 2.2 Total Bilirubin 0.3 Direct Bilirubin < 0.2 GGT 18 AST 19 ALT 15 Alkaline Phosphatase 100 Lactate Dehydrogenase 159 Total Protein 6.5 Albumin 3.4 Globulin 3.1 Albumin/Globulin Ratio 1.1 Triglycerides 67 Vancomycin Trough 6.5 Medical - DS: A/P - Patient/Caregiver Discharge Instructions Activity: increase activity as tolerated Diet: Cardiac Additional Instructions: Follow-up PCP in 5 days follow-up with dermatology in 1-2 weeks for rosacea management I recommend primary care physician to check CBC BMP as a posthospital follow-up Antibiotics for 5 days oral Keflex Continue aggressive bowel regimen to prevent constipation Continue fall precautions All meals on chair sitting upright at 90 degrees to prevent aspiration Return to ER if worsening fever chills shortness of breath, diarrhea, bleeding Review risk and side effect profile of medications including antibiotics. Side effect may include mild to severe reaction including rash, diarrhea, cdiff and even which can be prevented by close follow-up with PCP and monitoring for side effects Continue diet and activity as advised Discussed importance of medication adherence Please review medication list with patient prior to discharge Please schedule follow-up with PCP/Providers prior to discharge and provide printouts CC- PCP Prescriptions: Cephalexin [Keflex] 500 mg PO BID #10 capsule - Problem Maintenance (1) Atrial fibrillation with RVR Status: Acute - Follow up Plan Follow up with: Preston Almendarez MD [Primary Care Provider] - Disposition: Home, Self-Care Prognosis: Fair Rehab Potential: Fair I certify that the patient requires SNF services: No Overall status at discharge: patient is back to baseline Medical - DS: Qual - VTE Deep Vein Thrombosis/Pulmonary Embolism Present on Admission: No
== END 2016-09-11 13:20 | disposition home or self-care (01) | DRG 603 ==
LOC: ED 09:29 → ICU 14:00 → MEDSUR 09-09 15:24
PROVIDERS: ADMIT Internal Medicine; ATTEND Internal Medicine

== ENCOUNTER 2019-09-21 15:34 | Inpatient (IN) ==
--- NOTE | 2019-09-21 16:10 | Emergency Department Note ---
Eye Problem HPI - General Chief complaint: Eye Problems Stated complaint: fever eye swelling Time Seen by Provider: 09/21/19 15:40 Source: patient, old records reviewed Mode of arrival: ambulatory Limitations: altered mental status - History of Present Illness HPI Narrative: This patient was sent over [facility] because her left eye was mat laney shut with periorbital erythema and swelling. She does have a significant fever and her heart rate is high and she does have a history of atrial fibrillation. No history of cough or shortness of breath that has been mentioned. No abdominal pain nausea or vomiting. - Related Data Home Medications Medication Instructions Recorded Confirmed Artificial Tears Drops 2 drp BOTH EYES BID 09/09/16 09/20/19 Calcium 600 + Vit D Tablet 600 mg PO DAILY 09/09/16 09/20/19 Nystatin [Nyata] 1 applic TOPICAL BIDP PRN 09/09/16 09/20/19 acetaminophen 325 mg tablet 650 mg PO Q4-6HP PRN tab 02/25/18 09/20/19 apixaban 2.5 mg tablet 2.5 mg PO BID 02/25/18 09/20/19 cholestyramine-aspartame 4 gram 4 g PO BID g 02/25/18 09/20/19 oral powder furosemide 20 mg tablet 40 mg PO QDAY 02/25/18 09/20/19 potassium chloride 10 mEq 10 meq PO BID 02/25/18 09/20/19 capsule,extended release calcium carbonate 600 mg lozenges mg PO 03/10/18 09/20/19 levothyroxine 137 mcg tablet 137 mcg PO QDAY 03/10/18 09/20/19 montelukast 10 mg tablet 10 mg PO QPM 03/10/18 09/20/19 omeprazole 40 mg capsule,delayed 40 mg PO QDAY 03/10/18 09/20/19 release polyethylene glycol 3350 17 PO 03/10/18 09/20/19 gram/dose oral powder aluminum-mag hydroxide-simethicone 10 ml PO QID PRN 05/14/19 09/20/19 200 mg-200 mg-20 mg/5 mL oral susp baclofen 10 mg tablet 10 mg PO QHS tab 05/14/19 09/20/19 carboxymethylcellulose sodium 0.5 1 drp OPHTHALMIC TID 05/14/19 09/20/19 % eye drops cholecalciferol (vitamin D3) 10 800 unit PO QDAY cap 05/14/19 09/20/19 mcg (400 unit) capsule eryhromycin iiotycin ointment OPHTHALMIC 05/14/19 09/20/19 lorazepam 0.5 mg tablet 0.25 mg PO QD-BID PRN tab 05/14/19 09/20/19 lorazepam 0.5 mg tablet 0.5 mg PO BID PRN 05/14/19 09/20/19 metoprolol succinate 25 mg 25 mg PO BID tab 05/14/19 09/20/19 tablet,extended release 24 hr Doxycycline Hyclate [Vibramycin] 100 mg PO BID 09/21/19 09/21/19 Allergies Allergy/AdvReac Type Severity Reaction Status Date / Time [place] Allergy Intermediate Hives Verified 09/20/19 13:20 Penicillins Allergy Unknown Unknown Verified 09/20/19 13:20 Review of Systems All systems ED: reviewed and negative except as stated. 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 Pacemaker. Borderline intellectual function. 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 Denies: marijuana Physical Exam Limitations: altered mental status General appearance: alert Head: atraumatic Eye: Present: other (Left eye is matted shut with yellow purulent drainage and periorbital erythema and swelling) ENT: Present: normal exam Neck: Present: normal inspection Chest: Present: normal inspection Cardiovascular: Present: tachycardia, irregular rhythm Abdominal: Present: soft. Absent: distention, tenderness Neurological: Present: alert Psychiatric: Present: normal affect Skin: Present: warm, dry Course Vital Signs Temperature 101.7 F H 09/21/19 15:36 Pulse Rate 120 H 09/21/19 15:36 Respiratory Rate 16 09/21/19 15:36 Blood Pressure 128/88 09/21/19 15:36 Pulse Oximetry (%) 94 09/21/19 15:36 Temperature 98.7 F 09/21/19 19:22 Pulse Rate 69 09/21/19 22:31 Respiratory Rate 20 09/21/19 22:31 Blood Pressure 134/69 09/21/19 22:31 Pulse Oximetry (%) 92 09/21/19 22:31 Eye - MDM Narrative Medical decision making narrative: Patient received IV clindamycin for her periorbital cellulitis. We did do a CT scan which showed evidence of preseptal orbital cellulitis without abscess. I did discuss this with the meat service team member and he recommended IV antibiotics and admission. Patient's lab work was not that remarkable but her chest x-ray was questionable and with a higher fever earlier in the day we decided to test her for COVID. She will be admitted to the COVID ICU unit. We also had to give her diltiazem to control her atrial fib RVR. Heart rate initially was 135 but came down into the 70s. Dr. Julio will admit the patient to the hospital. - Lab Data Lab results reviewed: Yes I reviewed the patient's lab results. Result diagrams: 09/21/19 16:45 09/21/19 16:45 Lab Results 09/21/19 09/21/19 09/21/19 Range/Units 16:18 16:45 16:45 WBC 7.4 (4.50-11.00) K/mcL RBC 3.75 (3.59-5.38) M/mcL Hgb 12.9 (11.2-15.7) g/dL Hct 38.2 (34.1-44.9) % MCV 101.9 H (80.0-100.0) fL MCH 34.4 H (26.0-34.0) pg MCHC 33.8 (31.0-36.0) g/dL RDW 12.9 (11.5-14.5) % Plt Count 135 L (140-440) K/mcL MPV 9.5 (7.4-10.4) fL Total Counted 100 Seg Neutrophils % 70 (38-78) % Band Neutrophils % 1 (0-10) % Lymphocytes % 22 (15-49) % Monocytes % (Manual) 7 (1-12) % WBC Morphology Abnorm A (NORMAL) Toxic Granulation 1+ A (NONE SEEN) Platelet Estimate Decreased (NORMAL) RBC Morphology Abnorm A (NORMAL) Macrocytosis 1+ A (NONE SEEN) VBG Lactic Acid 0.9 (0.5-2.0) mmol/L Sodium 137 (133-145) mmol/L Potassium 4.0 (3.3-5.1) mmol/L Chloride 102 (96-108) mmol/L Carbon Dioxide 24 (22-30) mmol/L Anion Gap 11.0 (8-16) BUN 16 (8-23) mg/dl Creatinine 0.6 (0.6-1.1) mg/dl GFR Calculation 84 Glucose 100 (70-105) mg/dL Calcium 9.0 (8.6-10.4) mg/dl Ferritin (30-400) ng/ml Total Bilirubin 0.8 (0.0-1.0) mg/dL AST 11 (0-37) U/l ALT 6 (0-40) U/l Alkaline Phosphatase 106 (39-117) U/L Troponin T (0-0.03) ng/ml C-Reactive Protein (0.0-0.8) mg/dl NT-Pro-B Natriuret Pep (0-450) pg/ml Total Protein 7.5 (5.9-8.4) gm/dL Albumin 3.8 (3.2-5.2) gm/dL Globulin 3.7 (2.2-3.7) gm/dL Albumin/Globulin Ratio 1.0 (1.0-2.3) 09/21/19 09/21/19 Range/Units 20:30 20:30 WBC (4.50-11.00) K/mcL RBC (3.59-5.38) M/mcL Hgb (11.2-15.7) g/dL Hct (34.1-44.9) % MCV (80.0-100.0) fL MCH (26.0-34.0) pg MCHC (31.0-36.0) g/dL RDW (11.5-14.5) % Plt Count (140-440) K/mcL MPV (7.4-10.4) fL Total Counted Seg Neutrophils % (38-78) % Band Neutrophils % (0-10) % Lymphocytes % (15-49) % Monocytes % (Manual) (1-12) % WBC Morphology (NORMAL) Toxic Granulation (NONE SEEN) Platelet Estimate (NORMAL) RBC Morphology (NORMAL) Macrocytosis (NONE SEEN) VBG Lactic Acid (0.5-2.0) mmol/L Sodium (133-145) mmol/L Potassium (3.3-5.1) mmol/L Chloride (96-108) mmol/L Carbon Dioxide (22-30) mmol/L Anion Gap (8-16) BUN (8-23) mg/dl Creatinine (0.6-1.1) mg/dl GFR Calculation Glucose (70-105) mg/dL Calcium (8.6-10.4) mg/dl Ferritin 145.7 (30-400) ng/ml Total Bilirubin (0.0-1.0) mg/dL AST (0-37) U/l ALT (0-40) U/l Alkaline Phosphatase (39-117) U/L Troponin T < 0.01 (0-0.03) ng/ml C-Reactive Protein 2.8 H (0.0-0.8) mg/dl NT-Pro-B Natriuret Pep 672.3 H (0-450) pg/ml Total Protein (5.9-8.4) gm/dL Albumin (3.2-5.2) gm/dL Globulin (2.2-3.7) gm/dL Albumin/Globulin Ratio (1.0-2.3) - Radiology Data Radiology results reviewed: Yes I reviewed the patient's radiology results. Disposition Pt seen by [facility]UER/PA only: No Clinical Impression: Periorbital cellulitis, Preseptal cellulitis of left eye, Atrial fibrillation with RVR Disposition: Xfer As Inpt ([facility]) Condition: Fair Referrals: Preston Almendarez MD [Primary Care Provider] - Time of Disposition: 22:49
[2019-09-21] MEDS ORDERED: CLINDAMYCIN 600 MG in DEXTROSE 5% IN WATER 50 ML IV ONE (16:39)
[2019-09-21 17:20] LABS: Hematocrit 38.2 % (34.1-44.9); Hemoglobin 12.9 g/dL (11.2-15.7); Mean Cell Volume 101.9 fL (80.0-100.0); Mean Corpuscular HGB Conc 33.8 g/dL (31.0-36.0); Mean Platelet Volume 9.5 fL (7.4-10.4); Platelet Count 135 K/mcL (140-440); RBC 3.75 M/mcL (3.59-5.38); Red Cell Distribution Width 12.9 % (11.5-14.5); WBC 7.4 K/mcL (4.50-11.00)
[2019-09-21] MEDS: LACTATED RINGERS 1,000 ML IV SCH ×2 (17:30→21:50)
[2019-09-21 17:41] LABS: ALT/SGPT 6 U/l (0-40); AST/SGOT 11 U/l (0-37); Albumin 3.8 gm/dL (3.2-5.2); Alkaline Phosphatase 106 U/L (39-117); Bilirubin,Total 0.8 mg/dL (0.0-1.0); Blood Urea Nitrogen 16 mg/dl (8-23); Carbon Dioxide 24 mmol/L (22-30); Chloride 102 mmol/L (96-108); Globulin 3.7 gm/dL (2.2-3.7); Glomerular Filtration Rate 84; Glucose 100 mg/dL (70-105)
[2019-09-21 17:49] LABS: Band Neutrophils % 1 % (0-10); Lymphocytes % 22 % (15-49); Macrocytosis 1+ (NONE SEEN); Monocytes % (Manual) 7 % (1-12); Platelet Estimate DECREASED (NORMAL); RBC Morphology ABNORM (NORMAL); Segmented Neutrophils % 70 % (38-78); Toxic Granulation 1+ (NONE SEEN)
[2019-09-21] MEDS ORDERED: CLINDAMYCIN 600 MG/4 ML VIAL ONE (17:50)
[2019-09-21] MEDS ORDERED: ACETAMINOPHEN 325 MG TABLET PO ONE (17:58)
[2019-09-21] MEDS ORDERED: CIPROFLOXACIN 0.3% OPHTH DROPS BOTTLE OS ONE (18:06)
[2019-09-21] MEDS ORDERED: METOPROLOL TARTRATE 5 MG/5 ML VIAL IV ONE (19:23)
[2019-09-21] MEDS ORDERED: DILTIAZEM 25 MG/5 ML VIAL IV ONE (20:10)
[2019-09-21] MEDS ORDERED: DILTIAZEM 125 MG in DEXTROSE 5% IN WATER 100 ML IV SCH (20:15)
[2019-09-21 21:34] LABS: proBNP 672.3 pg/ml (0-450)
[2019-09-21 21:42] LABS: Ferritin 145.7 ng/ml (30-400)
[2019-09-21 21:56] LABS: C-Reactive Protein 2.8 mg/dl (0.0-0.8)
--- NOTE | 2019-09-21 22:46 | Internal Med History&Physical ---
Medical - H&P: HPI Patient information: Note initiated : 09/21/19 at 10:45 pm Service Date, if different from initiated Date: [] Patient: Tamiko Mendoza 84 y/o F admitted on for fever eye swelling. Chief Complaint: [] Chief complaint: Left eye swelling/fever History of present illness: Ms. Mendoza is a 84 year old F resident of [facility] with a history of hypertension/A. fib/facial erysipelas who presents to the ER with significant left eye swelling along with fever that have progressed and worsened over the last 24 hours. Initial work-up in the ER was consistent with left periorbital cellulitis along with facial cellulitis on CT. Ophthalmology was consulted by ER. Initial white count 7.4. Cultures were drawn and antibiotics were initiated. Hospital service was consulted. At the time evaluation patient is alert and oriented. She is very hard of hearing but was able to provide minimal history. Most of the history was obtained from review of medical records and from ER physician. No family members present.. Patient endorses to weakness/fever but denies diff iculty swallowing, headache, vision changes nausea or neck stiffness. 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 Almendarez Medical - H&P: Meds Home Medications Medication Instructions Recorded Confirmed Type Artificial Tears Drops 2 drp BOTH EYES BID 09/09/16 09/22/19 History Calcium 600 + Vit D Tablet 600 mg PO DAILY 09/09/16 09/22/19 History Nystatin [Nyata] 1 applic TOPICAL BIDP PRN 09/09/16 09/22/19 History acetaminophen 325 mg tablet 650 mg PO Q4-6HP PRN tab 02/25/18 09/22/19 History apixaban 2.5 mg tablet 2.5 mg PO BID 02/25/18 09/22/19 History cholestyramine-aspartame 4 gram 4 g PO BID g 02/25/18 09/22/19 History oral powder furosemide 20 mg tablet 40 mg PO QDAY 02/25/18 09/22/19 History potassium chloride 10 mEq 10 meq PO BID 02/25/18 09/22/19 History capsule,extended release levothyroxine 137 mcg tablet 137 mcg PO QDAY 03/10/18 09/22/19 History montelukast 10 mg tablet 10 mg PO HS 03/10/18 09/22/19 History omeprazole 40 mg capsule,delayed 40 mg PO QDAY 03/10/18 09/22/19 History release polyethylene glycol 3350 17 1 dose PO PRN PRN 03/10/18 09/22/19 History gram/dose oral powder aluminum-mag hydroxide-simethicone 10 ml PO Q4HP PRN 05/14/19 09/22/19 History 200 mg-200 mg-20 mg/5 mL oral susp baclofen 10 mg tablet 10 mg PO QHS tab 05/14/19 09/22/19 History carboxymethylcellulose sodium 0.5 1 drp OU PRN PRN 05/14/19 09/22/19 History % eye drops cholecalciferol (vitamin D3) 10 800 unit PO QDAY cap 05/14/19 09/22/19 History mcg (400 unit) capsule lorazepam 0.5 mg tablet 0.25 mg PO BIDP PRN tab 05/14/19 09/22/19 History lorazepam 0.5 mg tablet 0.5 mg PO BID 05/14/19 09/22/19 History metoprolol succinate 25 mg 25 mg PO BID tab 05/14/19 09/22/19 History tablet,extended release 24 hr Doxycycline Hyclate [Vibramycin] 100 mg PO BID 09/21/19 09/22/19 History Calcium Citrate 1,200 mg PO DAILY 09/22/19 09/22/19 History Allergies Allergy/AdvReac Type Severity Reaction Status Date / Time [place] Allergy Intermediate Hives Verified 09/20/19 13:20 Penicillins Allergy Unknown Unknown Verified 09/22/19 02:12 Medical - H&P: Exam - Constitutional Vitals: Temp Pulse Resp BP Pulse Ox 98.7 F 69 20 134/69 92 09/21/19 19:22 09/21/19 22:31 09/21/19 22:31 09/21/19 22:31 09/21/19 22:31 General appearance: moderate distress, no acute distress Exam: Hard of hearing Left sided facial erythema/left eye swollen spontaneous palpebral fissure closure due to surrounding induration Head otherwise normocephalic Oral cavity dry No ear nose discharge Neck lymphadenopathy S1-S2 irregular rhythm tachycardia Diminished breath sounds bases Abdomen pendulous Lower extremity minimal edema Skin no suspicious lesion Psych anxious but responds to commands Very hard of hearing Neuro nonfocal moving all 4 extremities Medical - H&P: Reslt - Labs CBC & Chem 7: 09/23/19 05:00 09/23/19 05:00 Labs: Short CBC 09/21/19 Range/Units 16:45 WBC 7.4 (4.50-11.00) K/mcL Hgb 12.9 (11.2-15.7) g/dL Hct 38.2 (34.1-44.9) % Plt Count 135 L (140-440) K/mcL BMP 09/21/19 16:45 Sodium 137 Potassium 4.0 Chloride 102 Carbon Dioxide 24 BUN 16 Creatinine 0.6 Glucose 100 Calcium 9.0 Cardiac Enzymes 09/21/19 Range/Units 20:30 Troponin T < 0.01 (0-0.03) ng/ml Liver Function 09/21/19 Range/Units 16:45 Total Bilirubin 0.8 (0.0-1.0) mg/dL AST 11 (0-37) U/l ALT 6 (0-40) U/l Alkaline Phosphatase 106 (39-117) U/L Albumin 3.8 (3.2-5.2) gm/dL Medical - H&P: A/P (1) Atrial fibrillation with RVR Current visit: Yes Status: Acute * A. fib RVR recurrent-continue rate control measure on diltiazem drip. Transition to home dose metoprolol. On apixaban for anticoagulation * Right periorbital cellulitis -initiate antibiotic coverage. No evidence of abscess on facial CT. * Facial erysipelas-antibiotic coverage. Prior history of MSSA facial erysipelas. On antibiotic coverage * history of CAD continue apixaban * Hypertension on beta-mendez * Hypothyroidism on levothyroxine * Anxiety disorder - Ativan * DVT prophylaxis on apixaban Plan * Inpatient admission * Rate control measures * Broad antibiotic coverage/ophthalmic antibiotic * Pre-existing medical condition management home meds * PT OT nutrition support * Discharge planning per case management Time spent on management of periorbital cellulitis/A. fib RVR, discussion with physician and treatment planning in excess of 100 minutes
[2019-09-21] MEDS ORDERED: ONDANSETRON 4 MG/2 ML VIAL IV PRN (23:35)
[2019-09-21] MEDS ORDERED: METOPROLOL TARTRATE 5 MG/5 ML VIAL IV PRN (23:35)
[2019-09-21] MEDS ORDERED: ONDANSETRON 4 MG ODT TABLET SL PRN (23:35)
[2019-09-21] MEDS ORDERED: ACETAMINOPHEN 325 MG TABLET PO PRN (23:35)
[2019-09-21] MEDS ORDERED: CEFEPIME 2 GM in DEXTROSE 5% IN WATER 50 ML IV SCH (23:35)
[2019-09-21] MEDS ORDERED: BISACODYL 10 MG SUPP.RECT PR PRN (23:35)
[2019-09-21] MEDS ORDERED: POLYETHYLENE GLYCOL 3350 17 GM PACKET PO PRN (23:35)
[2019-09-21] MEDS ORDERED: VANCOMYCIN PER PHARMACY IV SCH (23:35)
[2019-09-21] MEDS ORDERED: MELATONIN 3 MG TABLET PO PRN (23:35)
[2019-09-21] MEDS ORDERED: guaiFENesin/CODEINE 10 ML UDC PO PRN (23:35)
[2019-09-21] MEDS: 0.9 % SODIUM CHLORIDE 1,000 ML IV SCH (23:57)
[2019-09-22] MEDS ORDERED: VANCOMYCIN 1,500 MG in 0.9 % SODIUM CHLORIDE 500 ML IV ONE (00:23)
[2019-09-22 01:44] LABS: Appearance,Urine HAZY; Bacteria,Urine 0 /hpf (0); Bilirubin,Urine NEG (NEG); Color,Urine YELLOW; Culture Indicated,Urine NO; Glucose,Urine (UA) NEGATIVE (NEG); Ketones,Urine NEG (NEG); Leukocyte Esterase,Urine 500 /uL (NEG); Mucus,Urine FEW /hpf (0); Nitrate,Urine NEG (NEG); Protein,Urine NEG (NEG); Specific Gravity,Urine 1.018 (1.000-1.035); Urine Blood NEG mg/dL (<0.03); Urine Hyaline Cast 1 /lpf (0-2); Urine RBC 6 /hpf (0-1); Urine Squamous Epithelial Cell 9 /hpf (0-4); Urine WBC 22 /hpf (0-4); Urobilinogen,Urine NEG (NEG)
[2019-09-22] MEDS: 0.9 % SODIUM CHLORIDE 10 ML SYRINGE IV SCH ×3 (04:27→20:28)
--- NOTE | 2019-09-22 06:27 | XRay Report ---
CLINICAL INFORMATION: fever COMPARISON: 10/07/2017 FINDINGS: Dual-chamber pacemaker leads in stable satisfactory position without wire breakage. The heart is mildly enlarged, but unchanged. Mediastinum and pulmonary vasculature are normal. Film is underpenetrated - no evidence of infiltrate or effusion. IMPRESSION: Mild stable cardiomegaly. Interpreted and Authenticated by: Estrada English 09/22/19
--- NOTE | 2019-09-22 07:02 | Cat Scan Report ---
CLINICAL INFORMATION: Fever and eye swelling. Possible orbital cellulitis COMPARISON: None. TECHNIQUE: 0.625 mm axial slices were obtained through the facial region. Following reconstruction, 2.5 millimeter, axial, sagittal and coronal reformations were obtained and reviewed in bone and soft tissue windows.The exam was performed using radiation dose optimization techniques including, but not limited to, automated exposure control, adjustment of the mA and/or kV according to patient size and use of iterative reconstruction technique. FINDINGS: A 2 cm region of high attenuation phlegmon in the preseptal inferior medial quadrant of the left orbit is evident. Extension into the post septal soft tissues. This has resulted in left ocular globe compression. There is also mild involvement of the lateral preseptal soft tissues and left lacrimal gland. No evidence of globe rupture. The paranasal sinuses and nasal region are unremarkable. Severe degeneration of the left TMJ and moderate degeneration of the right TMJ appreciated. No focal osseous abnormality. There is severe degeneration of the cervical spine: At C2-3, severe left IV foraminal narrowing due to degenerative spurring with left C3 nerve root impingement. At C3-4, severe right and moderate left IV foraminal narrowing impinging exiting C4 nerve roots more severe on the right. C4-5 broad-based disc spur complex facet arthropathy result in moderate central canal severe bilateral lateral recess IV foraminal narrowing. C5-6 views with posterior marginal spurring resulting in mild central canal stenosis. IMPRESSION: 1. 2 cm high attenuation phlegmon predominantly within the inferior medial preseptal soft tissues of the left orbit with postsurgical extension resulting in ocular globe compression. There are is minor involvement of the remaining pre septal soft tissues. 2. 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 Severe cervical spine degenerative change resulting in severe lateral recess and IV foraminal narrowing at multiple levels as described. Correlate with upper extremity radiculopathy Interpreted and Authenticated by: Estrada English 09/22/19
[2019-09-22] MEDS ORDERED: HEPARIN 5,000 UNIT/ML VIAL SQ SCH (09:00)
[2019-09-22] MEDS: CEFEPIME 2 GM VIAL IV SCH ×2 (10:23→20:29)
[2019-09-22] MEDS: DOCUSATE SODIUM 100 MG CAPSULE PO SCH ×2 (10:24→20:27)
[2019-09-22] MEDS: MULTIVIT,THER IRON,CA,FA & MIN 1 TABLET PO SCH (10:24)
[2019-09-22] MEDS ORDERED: CARBOXYMETHYLCELLULOSE SODIUM 1 EACH DROPER.GEL OU PRN (10:47)
[2019-09-22] MEDS ORDERED: MAG HYDROX/AL HYDROX/SIMETH 30 ML ORAL.SUSP PO PRN (10:47)
[2019-09-22] MEDS ORDERED: LORazepam 0.5 MG TABLET PO PRN (10:47)
[2019-09-22] MEDS ORDERED: ACETAMINOPHEN 325 MG TABLET PO PRN (10:47)
--- NOTE | 2019-09-22 10:52 | Internal Med Progress Note ---
Medical - PN: Subj Patient information: Note initiated : 09/22/19 at 10:50 am Service Date, if different from initiated Date: [] Patient: Tamiko Mendoza 84 y/o F admitted on 09/21/19 for fever eye swelling. Chief Complaint: [] Interval history: Ms. Mendoza is a 84 year old F resident of [facility] with a history of hypertension/A. fib/facial erysipelas who presents to the ER with significant left eye swelling along with fever that have progressed and worsened over the last 24 hours. Initial work-up in the ER was consistent with left periorbital cellulitis along with facial cellulitis on CT. Ophthalmology was consulted by ER. Initial white count 7.4. Cultures were drawn and antibiotics were initiated. Patient was also found to be in A. fib with RVR and subsequently diltiazem was initiated. Hospital service was consulted. At the time evaluation patient is alert and oriented. She is very hard of hearing but was able to provide minimal history. Most of the history was obtained from review of medical records and from ER physician. No family members present.. Patient endorses to weakness/fever but denies difficulty swallowing, headache, vision changes nausea or neck stiffness. 429-patient doing well. Much improved facial swelling and redness since previous day. Slight opening of palpebral fissure noted. Continue antibiotic coverage. Start ophthalmic eyedrops. De-escalate antibiotics in 48 hours. Continue PT OT. COVID-19 test pending. Continue contact precautions. Improved rate controlled on diltiazem drip. - Constitutional Vitals: Vital Signs Temp Pulse Resp BP Pulse Ox 98.7 F 104 H 26 H 134/60 91 09/22/19 07:31 09/22/19 10:26 09/22/19 10:26 09/22/19 10:01 09/22/19 10:26 Period Temp Pulse Resp BP Sys/Huang Pulse Ox Last 24 Hr 98 F-101.7 F 53-160 13-40 101-167/60-152 87-97 Intake and Output 09/21/19 09/22/19 09/22/19 21:59 05:59 13:59 Intake Total 1054 578 Output Total 850 300 Balance 1054 -272 -300 Weight 160 lb 172 lb 6.4 oz Intake & Output: Intake & Output 09/21/19 09/22/19 09/22/19 21:59 05:59 13:59 Intake Total 1054 578 Output Total 850 300 Balance 1054 -272 -300 Weight 160 lb 172 lb 6.4 oz Intake: IV 1054 578 Maxipime 2 gm In Dextrose 5% in 50 Water 50 ml @ 100 mls/hr IV Q12H [facility] Rx#:[id number] Cleocin 600 mg In Dextrose 5% 54 in Water 50 ml @ 100 mls/hr IV ONCE ONE Rx#:[id number] Cardizem 125 mg In Dextrose 5% 28 in Water 100 ml @ 5 MG/HR 5 mls /hr IV Q12H [facility] Rx#:[id number] Lactated Ringers 1,000 ml @ 250 1000 mls/hr IV .Q4H [facility] Rx#: [id number] Vancomycin 1,500 mg In Sodium 500 Chloride 0.9% 500 ml @ 333.3 mls/hr IV ONCE ONE Rx#: [id number] Output: Void Amount 850 300 Other: Urine Appearance Cloudy Urine Color Bright Yellow Urine Odor Normal Stool Size Smear Stool Color Brown Stool Consistency Soft General appearance: no acute distress Exam: Alert respond to commands very hard of hearing Left eye palpable fissure slight opening noted with improved induration Facial redness swelling improved Nonlabored breathing No telemetry events Medical - PN: Obj Da - Labs CBC & Chem 7: 09/21/19 16:45 09/21/19 16:45 Labs: Abnormal Lab Results 09/22/19 09/21/19 09/21/19 01:00 20:30 16:45 MCV 101.9 H MCH 34.4 H Plt Count 135 L WBC Morphology Abnorm A Toxic Granulation 1+ A RBC Morphology Abnorm A Macrocytosis 1+ A C-Reactive Protein 2.8 H NT-Pro-B Natriuret Pep 672.3 H Ur Leukocyte Esterase 500 A Urine RBC 6 H Urine WBC 22 H Ur Squamous Epith Cells 9 H Meds: Medications Acetaminophen (Tylenol) 650 mg PO Q4-6HP PRN; Protocol PRN Reason: Per Pain Protocol/Fever > 101 Last Admin: 09/22/19 10:24 Dose: 650 mg Documented by: Acetaminophen (Tylenol) 650 mg PO Q4-6HP PRN; Protocol PRN Reason: Pain Al Hydrox/Mg Hydrox/Simethicone (Maalox) 10 ml PO Q4HP PRN PRN Reason: Constipation Apixaban (Eliquis) 2.5 mg PO BID [facility] Baclofen (Lioresal) 10 mg PO QHS [facility] Bisacodyl (Dulcolax) [address] Q2-3DAYS PRN PRN Reason: Constipation Last Admin: 09/22/19 10:24 Dose: 10 mg Documented by: Cefepime HCl (Maxipime) 2 gm IV Q12H [facility] Last Admin: 09/22/19 10:23 Dose: 2 gm Documented by: Ciprofloxacin (Ciloxan 0.3% Ophth Drops) 2 gtt OU Q2 [facility] Docusate Sodium (Colace) 100 mg PO BID [facility] Last Admin: 09/22/19 10:24 Dose: 100 mg Documented by: Furosemide (Lasix) 40 mg PO QDAY [facility] Guaifenesin/Codeine Phosphate (Robitussin Ac) 10 ml PO Q4HP PRN PRN Reason: Cough Heparin Sodium (Porcine) (Heparin) 5,000 unit SQ Q12 [facility] Last Admin: 09/22/19 10:24 Dose: 5,000 unit Documented by: Diltiazem HCl 125 mg/ Dextrose 125 mls @ 5 mls/hr IV Q12H [facility]; Protocol Sodium Chloride (Sodium Chloride 0.9%) 1,000 mls @ 50 mls/hr IV .Q20H [facility] Stop: 09/24/19 11:34 Last Admin: 09/21/19 23:57 Dose: 50 mls/hr Documented by: Vancomycin HCl 1,000 mg/ (Sodium Chloride) 250 mls @ 250 mls/hr IV Q24H [facility] Iron Carb/Multivit/Goehner/Folic Acid (Multivitamin W/Minerals) 1 tab PO DAILY [facility] Last Admin: 09/22/19 10:24 Dose: 1 tab Documented by: Lorazepam (Ativan) 0.25 mg PO BIDP PRN PRN Reason: Anxiety Lorazepam (Ativan) 0.5 mg PO BID [facility] Melatonin (Melatonin 3mg Tablet) 3 mg PO HSP PRN PRN Reason: Insomnia Metoprolol Succinate (Toprol Xl) 25 mg PO BID [facility] Metoprolol Tartrate (Lopressor) 5 mg IV Q5M PRN PRN Reason: Heart Rate > 140 bpm Non-Formulary Medication (Carboxymethylcellulose Sodium [Refresh Tears]) 1 drp OU PRN PRN PRN Reason: Dry Eyes Non-Formulary Medication (Levothyroxine Sodium [Synthroid]) 137 mcg PO QDAY [facility] Non-Formulary Medication (Omeprazole) 40 mg PO QDAY [facility] Non-Formulary Medication (Potassium Chloride) 10 meq PO BID [facility] Ondansetron HCl (Zofran Odt) 4 mg SL Q4-6HP PRN; Protocol PRN Reason: Nausea And Vomiting Ondansetron HCl (Zofran) 4 mg IV Q4-6HP PRN; Protocol PRN Reason: Nausea And Vomiting Polyethylene Glycol (Miralax) 17 gm PO DAILYP PRN PRN Reason: Constipation Senna/Docusate Sodium (Senna Plus Tablet) 1 tab PO HS [facility] Sodium Chloride (Saline Flush) 10 ml IV Q8 [facility] Last Admin: 09/22/19 04:27 Dose: Not Given Documented by: Vancomycin HCl (Vancomycin Per Pharmacy) 1 order IV UD [facility]; Protocol Medical - PN: A/P - Time Spent With Patient Total time spent is greater than 50% in coordination of care (as documented) at patient's floor/unit and/or counseling patient: 25 - 35 minutes (1) Atrial fibrillation with RVR Status: Acute Assessment and plan: * A. fib RVR-continue rate control measures. Continue diltiazem drip. Transition to home dose metoprolol. On apixaban for anticoagulation * Periorbital cellulitis-initiate antibiotic coverage. No evidence of abscess on facial CT. * Facial erysipelas-clinically improving on IV antibiotic * history of CAD continue apixaban * Hypertension on CCB/beta-mendez * Hypothyroidism on levothyroxine * Anxiety disorder - Ativan * DVT prophylaxis on apixaban Plan * Inpatient admission * Rate control measures * Broad antibiotic coverage/ophthalmic antibiotic * Pre-existing medical condition management home meds * PT OT nutrition support * Discharge planning per case management Current Visit: Yes Medical - PN: Qual - VTE Deep Vein Thrombosis/Pulmonary Embolism Present on Admission: No
[2019-09-22] MEDS: CIPROFLOXACIN 0.3% OPHTH DROPS BOTTLE OU SCH ×6 (11:30→21:15)
[2019-09-22] MEDS: DILTIAZEM 125 MG in DEXTROSE 5% IN WATER 100 ML IV SCH ×2 (11:31→20:26)
[2019-09-22 12:51] LABS: ALT/SGPT 7 U/l (0-40); AST/SGOT 15 U/l (0-37); Albumin 3.7 gm/dL (3.2-5.2); Albumin/Globulin Ratio 0.9 (1.0-2.3); Alkaline Phosphatase 115 U/L (39-117); Bilirubin,Direct 0.2 mg/dL (0.0-0.3); Bilirubin,Total 1.2 mg/dL (0.0-1.0); Blood Urea Nitrogen 10 mg/dl (8-23); Calcium 9.2 mg/dl (8.6-10.4); Carbon Dioxide 22 mmol/L (22-30); Chloride 101 mmol/L (96-108); Glomerular Filtration Rate 84; Glucose 134 mg/dL (70-105); Lactate Dehydrogenase 194 U/L (94-250); Phosphorous 2.4 mg/dL (2.7-4.5); Triglycerides 56 mg/dl (<150); Uric Acid 3.3 mg/dL (2.5-8.0)
[2019-09-22 13:14] LABS: Hematocrit 38.9 % (34.1-44.9); Hemoglobin 13.2 g/dL (11.2-15.7); Mean Cell Volume 101.6 fL (80.0-100.0); Mean Corpuscular HGB Conc 33.9 g/dL (31.0-36.0); Mean Platelet Volume 9.9 fL (7.4-10.4); Platelet Count 149 K/mcL (140-440); RBC 3.83 M/mcL (3.59-5.38); Red Cell Distribution Width 12.7 % (11.5-14.5); WBC 7.4 K/mcL (4.50-11.00)
[2019-09-22 13:54] LABS: Band Neutrophils % 1 % (0-10); Lymphocytes % 16 % (15-49); Macrocytosis 1+ (NONE SEEN); Monocytes % (Manual) 6 % (1-12); Platelet Estimate NORMAL (NORMAL); RBC Morphology ABNORM (NORMAL); Segmented Neutrophils % 77 % (38-78)
[2019-09-22] MEDS ORDERED: VANCOMYCIN 1,000 MG in 0.9 % SODIUM CHLORIDE 250 ML IV SCH (16:00)
[2019-09-22] MEDS: POTASSIUM CHLORIDE 10 MEQ TABLET PO SCH (16:52)
[2019-09-22] MEDS ORDERED: MAGNESIUM SULFATE 2 GM/50 ML BAG IV ONE (16:53)
[2019-09-22] MEDS: MONTELUKAST 10 MG TABLET PO SCH (20:27)
[2019-09-22] MEDS: BACLOFEN 10 MG TABLET PO SCH (20:27)
[2019-09-22] MEDS: SENNOSIDES/DOCUSATE SODIUM 1 TAB TABLET PO SCH (20:27)
[2019-09-22] MEDS: APIXABAN 2.5 MG TABLET PO SCH (20:27)
[2019-09-22] MEDS ORDERED: METOPROLOL SUCCINATE 25 MG TAB.XL.24H PO SCH (21:00)
[2019-09-23] MEDS: DILTIAZEM 125 MG in DEXTROSE 5% IN WATER 100 ML IV SCH ×3 (00:17→18:27)
[2019-09-23] MEDS: CIPROFLOXACIN 0.3% OPHTH DROPS BOTTLE OU SCH ×12 (00:17→22:02)
[2019-09-23] MEDS: 0.9 % SODIUM CHLORIDE 1,000 ML IV SCH (00:24)
[2019-09-23] MEDS: 0.9 % SODIUM CHLORIDE 10 ML SYRINGE IV SCH ×3 (05:21→20:07)
[2019-09-23 06:12] LABS: Hematocrit 35.8 % (34.1-44.9); Hemoglobin 12.1 g/dL (11.2-15.7); Mean Cell Volume 100.6 fL (80.0-100.0); Mean Corpuscular HGB Conc 33.8 g/dL (31.0-36.0); Mean Platelet Volume 9.7 fL (7.4-10.4); Platelet Count 132 K/mcL (140-440); RBC 3.56 M/mcL (3.59-5.38); Red Cell Distribution Width 12.7 % (11.5-14.5); WBC 6.9 K/mcL (4.50-11.00)
[2019-09-23 06:28] LABS: ALT/SGPT 52 U/l (0-40); AST/SGOT 111 U/l (0-37); Albumin 3.3 gm/dL (3.2-5.2); Albumin/Globulin Ratio 0.9 (1.0-2.3); Alkaline Phosphatase 132 U/L (39-117); Bilirubin,Direct 0.2 mg/dL (0.0-0.3); Bilirubin,Total 0.8 mg/dL (0.0-1.0); Blood Urea Nitrogen 9 mg/dl (8-23); Calcium 8.5 mg/dl (8.6-10.4); Carbon Dioxide 20 mmol/L (22-30); Chloride 105 mmol/L (96-108); Globulin 3.6 gm/dL (2.2-3.7); Glomerular Filtration Rate 89; Glucose 108 mg/dL (70-105); Lactate Dehydrogenase 246 U/L (94-250); Phosphorous 2.4 mg/dL (2.7-4.5); Triglycerides 48 mg/dl (<150); Uric Acid 2.8 mg/dL (2.5-8.0)
[2019-09-23] MEDS: LEVOTHYROXINE 25 MCG TABLET PO SCH (06:50)
[2019-09-23] MEDS: OMEPRAZOLE 20 MG CAPSULE PO SCH (06:50)
[2019-09-23] MEDS: LORazepam 0.5 MG TABLET PO PRN ×2 (06:50→20:05)
[2019-09-23] MEDS: LEVOTHYROXINE SODIUM 112 MCG TABLET PO SCH (06:50)
[2019-09-23 08:06] LABS: Lymphocytes % 18 % (15-49); Monocytes % (Manual) 8 % (1-12); Platelet Estimate DECREASED (NORMAL); RBC Morphology NORMAL (NORMAL); Segmented Neutrophils % 74 % (38-78)
[2019-09-23] MEDS: FUROSEMIDE 20 MG TABLET PO SCH (09:03)
[2019-09-23] MEDS: APIXABAN 2.5 MG TABLET PO SCH ×2 (09:03→20:05)
[2019-09-23] MEDS: DOCUSATE SODIUM 100 MG CAPSULE PO SCH ×2 (09:03→20:05)
[2019-09-23] MEDS: MULTIVIT,THER IRON,CA,FA & MIN 1 TABLET PO SCH (09:03)
[2019-09-23] MEDS: CEFEPIME 2 GM VIAL IV SCH ×2 (09:03→20:06)
[2019-09-23] MEDS: METOPROLOL SUCCINATE 50 MG TAB.XL.24H PO SCH ×2 (09:03→20:05)
[2019-09-23] MEDS: POTASSIUM CHLORIDE 10 MEQ TABLET PO SCH ×2 (09:03→17:37)
[2019-09-23] MEDS ORDERED: NEUTRA PHOS 1 PACKET PO PRN (09:19)
--- NOTE | 2019-09-23 09:21 | Internal Med Progress Note ---
Medical - PN: Subj Patient information: Note initiated : 09/23/19 at 9:19 am Service Date, if different from initiated Date: [] Patient: Tamiko Mendoza 84 y/o F admitted on 09/21/19 for fever eye swelling. Chief Complaint: [] Interval history: Ms. Mendoza is a 84 year old F resident of [facility] with a history of hypertension/A. fib/facial erysipelas who presents to the ER with significant left eye swelling along with fever that have progressed and worsened over the last 24 hours. Initial work-up in the ER was consistent with left periorbital cellulitis along with facial cellulitis on CT. Ophthalmology was consulted by ER. Initial white count 7.4. Cultures were drawn and antibiotics were initiated. Patient was also found to be in A. fib with RVR and subsequently diltiazem was initiated. H ospital service was consulted. At the time evaluation patient is alert and oriented. She is very hard of hearing but was able to provide minimal history. Most of the history was obtained from review of medical records and from ER physician. No family members present.. Patient endorses to weakness/fever but denies difficulty swallowing, headache, vision changes nausea or neck stiffness. 429-patient doing well. Much improved facial swelling and redness since previous day. Slight opening of palpebral fissure noted. Continue antibiotic coverage. Start ophthalmic eyedrops. De-escalate antibiotics in 48 hours. Continue PT OT. COVID-19 test pending. Continue contact precautions. Improved rate controlled on diltiazem drip. 09/22-patient clinically improved. No overnight events. Left-sided facial swelling/periorbital erythema induration much improved. Able to open her eyes. Afebrile. Telemetry A. fib rate controlled. Currently diltiazem at 15. Increased dose of oral metoprolol and wean diltiazem drip. Continue antibiotic coverage. No fever chills. Magnesium improved to 2, phosphorus 2.4 - Constitutional Vitals: Vital Signs Temp Pulse Resp BP Pulse Ox 99.5 F H 96 H 27 H 114/87 90 09/23/19 05:01 09/23/19 02:00 09/23/19 07:01 09/23/19 07:01 09/23/19 07:01 Period Temp Pulse Resp BP Sys/Huang Pulse Ox Last 24 Hr 99 F-99.6 F 95-110 12-55 105-164/53-112 85-99 Intake and Output 09/22/19 09/23/19 09/23/19 21:59 05:59 13:59 Intake Total 1720 94 31 Output Total 1 2 Balance 1719 92 31 Weight 172 lb 1 oz Intake & Output: Intake & Output 09/22/19 09/23/19 09/23/19 21:59 05:59 13:59 Intake Total 1720 94 31 Output Total 1 2 Balance 1719 92 31 Weight 172 lb 1 oz Intake: IV 1420 94 31 Sodium Chloride 0.9% 1,000 ml @ 1000 50 mls/hr IV .Q20H [facility] Rx#: [id number] Cardizem 125 mg In Dextrose 5% 120 94 31 in Water 100 ml @ 5 MG/HR 5 mls /hr IV Q12H [facility] Rx#:[id number] Vancomycin 1,000 mg In Sodium 250 Chloride 0.9% 250 ml @ 250 mls/ hr IV Q24H [facility] Rx#:[id number] Oral 300 Output: # of times incontinent of urine 1 2 Other: Urine Appearance Cloudy Urine Color Dark Yellow Urine Odor Normal Stool Size Moderate Stool Color Brown Stool Consistency Soft # Bowel Movements 1 # of times incontinent of 1 Bowels General appearance: no acute distress Exam: Alert oriented Hard of hearing Atrial fibrillation on telemetry No anxiety Much improved erythema/induration left face and able to open eyes Medical - PN: Obj Da - Labs CBC & Chem 7: 09/23/19 05:00 09/23/19 05:00 Labs: Abnormal Lab Results 09/23/19 09/23/19 09/22/19 05:00 05:00 10:16 RBC 3.56 L MCV 100.6 H MCH Plt Count 132 L WBC Morphology Toxic Granulation RBC Morphology Macrocytosis Carbon Dioxide 20 L Creatinine 0.5 L Glucose 108 H 134 H Calcium 8.5 L Phosphorus 2.4 L 2.4 L Magnesium 1.5 L Total Bilirubin 1.2 H AST 111 H ALT 52 H Alkaline Phosphatase 132 H C-Reactive Protein NT-Pro-B Natriuret Pep Globulin 4.0 H Albumin/Globulin Ratio 0.9 L 0.9 L Ur Leukocyte Esterase Urine RBC Urine WBC Ur Squamous Epith Cells 09/22/19 09/22/19 09/21/19 10:16 01:00 20:30 RBC MCV 101.6 H MCH 34.5 H Plt Count WBC Morphology Toxic Granulation RBC Morphology Abnorm A Macrocytosis 1+ A Carbon Dioxide Creatinine Glucose Calcium Phosphorus Magnesium Total Bilirubin AST ALT Alkaline Phosphatase C-Reactive Protein 2.8 H NT-Pro-B Natriuret Pep 672.3 H Globulin Albumin/Globulin Ratio Ur Leukocyte Esterase 500 A Urine RBC 6 H Urine WBC 22 H Ur Squamous Epith Cells 9 H 09/21/19 16:45 RBC MCV 101.9 H MCH 34.4 H Plt Count 135 L WBC Morphology Abnorm A Toxic Granulation 1+ A RBC Morphology Abnorm A Macrocytosis 1+ A Carbon Dioxide Creatinine Glucose Calcium Phosphorus Magnesium Total Bilirubin AST ALT Alkaline Phosphatase C-Reactive Protein NT-Pro-B Natriuret Pep Globulin Albumin/Globulin Ratio Ur Leukocyte Esterase Urine RBC Urine WBC Ur Squamous Epith Cells Meds: Medications Acetaminophen (Tylenol) 650 mg PO Q4-6HP PRN; Protocol PRN Reason: Per Pain Protocol/Fever > 101 Last Admin: 09/22/19 10:24 Dose: 650 mg Documented by: Al Hydrox/Mg Hydrox/Simethicone (Maalox) 10 ml PO Q4HP PRN PRN Reason: Constipation Apixaban (Eliquis) 2.5 mg PO BID [facility] Last Admin: 09/23/19 09:03 Dose: 2.5 mg Documented by: Artificial Tears (Refresh Celluvisc) 1 each OU DAILYP PRN PRN Reason: Dry Eyes Baclofen (Lioresal) 10 mg PO HS [facility] [place] Last Admin: 09/22/19 20:27 Dose: 10 mg Documented by: Bisacodyl (Dulcolax) 10 mg [place] Q2-3DAYS PRN PRN Reason: Constipation Last Admin: 09/22/19 10:24 Dose: 10 mg Documented by: Cefepime HCl (Maxipime) 2 gm IV Q12H [facility] [place] Last Admin: 09/23/19 09:03 Dose: 2 gm Documented by: Ciprofloxacin (Ciloxan 0.3% Ophth Drops) 2 gtt OU Q2 [facility] [place] Last Admin: 09/23/19 09:02 Dose: 2 gtt Documented by: Docusate Sodium (Colace) 100 mg PO BID [facility] [place] Last Admin: 09/23/19 09:03 Dose: 100 mg Documented by: Furosemide (Lasix) 40 mg PO QDAY [facility] Last Admin: 09/23/19 09:03 Dose: 40 mg Documented by: Diltiazem HCl 125 mg/ Dextrose 125 mls @ 5 mls/hr IV Q12H [facility]; Protocol Last Admin: 09/23/19 06:51 Dose: 15 mg/hr, 15 mls/hr Documented by: Sodium Chloride (Sodium Chloride 0.9%) 1,000 mls @ 50 mls/hr IV .Q20H [facility] Stop: 09/24/19 11:34 Last Admin: 09/23/19 00:24 Dose: 50 mls/hr Documented by: Vancomycin HCl 1,000 mg/ (Sodium Chloride) 250 mls @ 250 mls/hr IV Q24H [facility] [place] Last Infusion: 09/22/19 17:00 Dose: Infused Documented by: Iron Carb/Multivit/Grimes/Folic Acid (Multivitamin W/Minerals) 1 tab PO DAILY [facility] Last Admin: 09/23/19 09:03 Dose: 1 tab Documented by: [facility]ine [facility]) [facility] Last Admin: 09/23/19 06:50 Dose: 112 mcg Documented by: Levothyroxine Sodium (Synthroid) 25 mcg PO QAMAC [facility] Last Admin: 09/23/19 06:50 Dose: 25 mcg Documented by: Lorazepam (Ativan) 0.5 mg PO BIDP PRN PRN Reason: ANXIETY/SEDATION Last Admin: 09/23/19 06:50 Dose: 0.5 mg Documented by: Melatonin (Melatonin 3mg Tablet) 3 mg PO HSP PRN PRN Reason: Insomnia Metoprolol Succinate (Toprol Xl) 50 mg PO BID [facility] Last Admin: 09/23/19 09:03 Dose: 50 mg Documented by: Metoprolol Tartrate (Lopressor) 5 mg IV Q5M PRN PRN Reason: Heart Rate > 140 bpm Montelukast Sodium (Singular) 10 mg PO HS [facility] Last Admin: 09/22/19 20:27 Dose: 10 mg Documented by: Omeprazole (Prilosec) 40 mg PO ACB [facility] [place] Last Admin: 09/23/19 06:50 Dose: 40 mg Documented by: Ondansetron HCl (Zofran Odt) 4 mg SL Q4-6HP PRN; Protocol PRN Reason: Nausea And Vomiting Ondansetron HCl (Zofran) 4 mg IV Q4-6HP PRN; Protocol PRN Reason: Nausea And Vomiting Polyethylene Glycol (Miralax) 17 gm PO DAILYP PRN PRN Reason: Constipation Potassium Chloride (Kdur) 10 meq PO BIDCC [facility] Last Admin: 09/23/19 09:03 Dose: 10 meq Documented by: Senna/Docusate Sodium (Senna Plus Tablet) 1 tab PO HS [facility] [place] Last Admin: 09/22/19 20:27 Dose: 1 tab Documented by: Sodium Chloride (Saline Flush) 10 ml IV Q8 [facility] [place] Last Admin: 09/23/19 05:21 Dose: Not Given Documented by: Vancomycin HCl (Vancomycin Per Pharmacy) 1 order IV UD [facility]; Protocol Medical - PN: A/P - Time Spent With Patient Total time spent is greater than 50% in coordination of care (as documented) at patient's floor/unit and/or counseling patient: 25 - 35 minutes (1) Atrial fibrillation with RVR Status: Acute Assessment and plan: * A. fib RVR-transition to oral metoprolol. Dose increased to 50 twice daily. Wean diltiazem drip. On apixaban for CVA prophylaxis * Periorbital cellulitis with facial erysipelas- clinically improving on antibiotic coverage. * history of CAD on beta-mendez * Hypertension on CCB/beta-mendez * Hypothyroidism on levothyroxine * Anxiety disorder -as needed * DVT prophylaxis on apixaban Plan * Continue rate control measures and increase metoprolol to 50 twice daily * IV and ophthalmic antibiotic * Pre-existing medical condition management home meds * PT OT nutrition support * discharge likely in 24 to 48 hours Current Visit: Yes Medical - PN: Qual - VTE Deep Vein Thrombosis/Pulmonary Embolism Present on Admission: No
[2019-09-23] MEDS: VANCOMYCIN 1,000 MG in 0.9 % SODIUM CHLORIDE 250 ML IV SCH ×2 (10:24→20:06)
--- NOTE | 2019-09-23 13:36 | Internal Med Progress Note ---
Medical - PN: Subj Patient information: Note initiated : 09/23/19 at 1:30 pm Service Date, if different from initiated Date: [] Patient: Tamiko Mendoza 84 y/o F admitted on 09/21/19 for fever eye swelling. Chief Complaint: [] Interval history: Ms. Mendoza is a 84 year old F resident of [facility] with a history of hypertension/A. fib/facial erysipelas who presents to the ER with significant left eye swelling along with fever that have progressed and worsened over the last 24 hours. Initial work-up in the ER was consistent with left periorbital cellulitis along with facial cellulitis on CT. Ophthalmology was consulted by ER. Initial white count 7.4. Cultures were drawn and antibiotics were initiated. Patient was also found to be in A. fib with RVR and subsequently diltiazem was initiated. H ospital service was consulted. At the time evaluation patient is alert and oriented. She is very hard of hearing but was able to provide minimal history. Most of the history was obtained from review of medical records and from ER physician. No family members present.. Patient endorses to weakness/fever but denies difficulty swallowing, headache, vision changes nausea or neck stiffness. 429-patient doing well. Much improved facial swelling and redness since previous day. Slight opening of palpebral fissure noted. Continue antibiotic coverage. Start ophthalmic eyedrops. De-escalate antibiotics in 48 hours. Continue PT OT. COVID-19 test pending. Continue contact precautions. Improved rate controlled on diltiazem drip. 09/22-patient clinically improved. No overnight events. Left-sided facial swelling/periorbital erythema induration much improved. Able to open her eyes. Afebrile. Telemetry A. fib rate controlled. Currently diltiazem at 15. Increased dose of oral metoprolol and wean diltiazem drip. Continue antibiotic coverage. No fever chills. Magnesium improved to 2, phosphorus 2.4 09/23 - Constitutional Vitals: Vital Signs Temp Pulse Resp BP Pulse Ox 98.9 F 96 H 21 125/106 94 09/23/19 09:00 09/23/19 02:00 09/23/19 13:11 09/23/19 13:11 09/23/19 09:00 Period Temp Pulse Resp BP Sys/Huang Pulse Ox Last 24 Hr 98.9 F-99.6 F 96-110 16-55 105-164/49-112 85-99 Intake and Output 09/22/19 09/23/19 09/23/19 21:59 05:59 13:59 Intake Total 1720 94 94 Output Total 1 2 Balance 1719 92 94 Weight 78.046 kg Intake & Output: Intake & Output 09/22/19 09/23/19 09/23/19 21:59 05:59 13:59 Intake Total 1720 94 94 Output Total 1 2 Balance 1719 92 94 Weight 78.046 kg Intake: IV 1420 94 94 Sodium Chloride 0.9% 1,000 ml @ 1000 50 mls/hr IV .Q20H [facility] Rx#: [id number] Cardizem 125 mg In Dextrose 5% 120 94 94 in Water 100 ml @ 5 MG/HR 5 mls /hr IV Q12H [facility] Rx#:[id number] Vancomycin 1,000 mg In Sodium 250 Chloride 0.9% 250 ml @ 250 mls/ hr IV Q24H [facility] Rx#:[id number] Oral 300 Output: # of times incontinent of urine 1 2 Other: Meal Breakfast Percent of Meal Consumed 100% Urine Appearance Cloudy Urine Color Dark Yellow Urine Odor Normal Stool Size Moderate Stool Color Brown Stool Consistency Soft # Bowel Movements 1 # of times incontinent of 1 Bowels Exam: General: Alert, Awake, No acute Distress Eyes/N/T: EOMI, left face erythema/swelling much improved Head/Neck: neck supple, CV: irreg irreg, No murmurs, Pulm: Clear b/l, no wheezing/rhonchi/rales Abd: soft, nontender, +BS x4 Ext: no clubbing/cyanosis/edema Neuro: Alert, no focal deficits, moves all extremities, Skin: warm/dry Medical - PN: Obj Da - Labs CBC & Chem 7: 09/23/19 05:00 09/23/19 05:00 Labs: Abnormal Lab Results 09/23/19 09/23/19 09/22/19 05:00 05:00 10:16 RBC 3.56 L MCV 100.6 H MCH Plt Count 132 L WBC Morphology Toxic Granulation RBC Morphology Macrocytosis Carbon Dioxide 20 L Creatinine 0.5 L Glucose 108 H 134 H Calcium 8.5 L Phosphorus 2.4 L 2.4 L Magnesium 1.5 L Total Bilirubin 1.2 H AST 111 H ALT 52 H Alkaline Phosphatase 132 H C-Reactive Protein NT-Pro-B Natriuret Pep Globulin 4.0 H Albumin/Globulin Ratio 0.9 L 0.9 L Ur Leukocyte Esterase Urine RBC Urine WBC Ur Squamous Epith Cells 09/22/19 09/22/19 09/21/19 10:16 01:00 20:30 RBC MCV 101.6 H MCH 34.5 H Plt Count WBC Morphology Toxic Granulation RBC Morphology Abnorm A Macrocytosis 1+ A Carbon Dioxide Creatinine Glucose Calcium Phosphorus Magnesium Total Bilirubin AST ALT Alkaline Phosphatase C-Reactive Protein 2.8 H NT-Pro-B Natriuret Pep 672.3 H Globulin Albumin/Globulin Ratio Ur Leukocyte Esterase 500 A Urine RBC 6 H Urine WBC 22 H Ur Squamous Epith Cells 9 H 09/21/19 16:45 RBC MCV 101.9 H MCH 34.4 H Plt Count 135 L WBC Morphology Abnorm A Toxic Granulation 1+ A RBC Morphology Abnorm A Macrocytosis 1+ A Carbon Dioxide Creatinine Glucose Calcium Phosphorus Magnesium Total Bilirubin AST ALT Alkaline Phosphatase C-Reactive Protein NT-Pro-B Natriuret Pep Globulin Albumin/Globulin Ratio Ur Leukocyte Esterase Urine RBC Urine WBC Ur Squamous Epith Cells Meds: Medications Acetaminophen (Tylenol) 650 mg PO Q4-6HP PRN; Protocol PRN Reason: Per Pain Protocol/Fever > 101 Last Admin: 09/22/19 10:24 Dose: 650 mg Documented by: Al Hydrox/Mg Hydrox/Simethicone (Maalox) 10 ml PO Q4HP PRN PRN Reason: Constipation Apixaban (Eliquis) 2.5 mg PO BID [facility] Last Admin: 09/23/19 09:03 Dose: 2.5 mg Documented by: Artificial Tears (Refresh Celluvisc) 1 each OU DAILYP PRN PRN Reason: Dry Eyes Baclofen (Lioresal) 10 mg PO HS [facility] Last Admin: 09/22/19 20:27 Dose: 10 mg Documented by: Bisacodyl (Dulcolax) 10 mg NC Q2-3DAYS PRN PRN Reason: Constipation Last Admin: 09/22/19 10:24 Dose: 10 mg Documented by: Cefepime HCl (Maxipime) 2 gm IV Q12H [facility] Last Admin: 09/23/19 09:03 Dose: 2 gm Documented by: Ciprofloxacin (Ciloxan 0.3% Ophth Drops) 2 gtt OU Q2 [facility] Last Admin: 09/23/19 12:30 Dose: 2 gtt Documented by: Docusate Sodium (Colace) 100 mg PO BID [facility] Last Admin: 09/23/19 09:03 Dose: 100 mg Documented by: Furosemide (Lasix) 40 mg PO QDAY [facility] Last Admin: 09/23/19 09:03 Dose: 40 mg Documented by: Diltiazem HCl 125 mg/ Dextrose 125 mls @ 5 mls/hr IV Q12H [facility]; Protocol Last Titration: 09/23/19 11:13 Dose: 0 mg/hr, 0 mls/hr Documented by: Sodium Chloride (Sodium Chloride 0.9%) 1,000 mls @ 50 mls/hr IV .Q20H [facility] Stop: 09/24/19 11:34 Last Admin: 09/23/19 00:24 Dose: 50 mls/hr Documented by: Vancomycin HCl 1,000 mg/ (Sodium Chloride) 250 mls @ 250 mls/hr IV Q12H [facility] Last Admin: 09/23/19 10:24 Dose: 250 mls/hr Documented by: Iron Carb/Multivit/[place]/Folic Acid (Multivitamin W/Minerals) 1 tab PO DAILY [facility] Last Admin: 09/23/19 09:03 Dose: 1 tab Documented by: Levothyroxine S[facility] (Synthroid) [facility] Last Admin: 09/23/19 06:50 Dose: 112 mcg Documented by: Levothyroxine Sodium (Synthroid) [facility] Last Admin: 09/23/19 06:50 Dose: 25 mcg Documented by: Lorazepam (Ativan) 0.5 mg PO BIDP PRN PRN Reason: ANXIETY/SEDATION Last Admin: 09/23/19 06:50 Dose: 0.5 mg Documented by: Melatonin (Melatonin 3mg Tablet) 3 mg PO HSP PRN PRN Reason: Insomnia Metoprolol Succinate (Toprol Xl) 50 mg PO BID [facility] Last Admin: 09/23/19 09:03 Dose: 50 mg Documented by: Metoprolol Tartrate (Lopressor) 5 mg IV Q5M PRN PRN Reason: Heart Rate > 140 bpm Montelukast Sodium (Singular) 10 mg PO [facility] Last Admin: 09/22/19 20:27 Dose: 10 mg Documented by: Omeprazole (Prilosec) 40 mg PO ACB [facility] Last Admin: 09/23/19 06:50 Dose: 40 mg Documented by: Ondansetron HCl (Zofran Odt) 4 mg SL Q4-6HP PRN; Protocol PRN Reason: Nausea And Vomiting Ondansetron HCl (Zofran) 4 mg IV Q4-6HP PRN; Protocol PRN Reason: Nausea And Vomiting Polyethylene Glycol (Miralax) 17 gm PO DAILYP PRN PRN Reason: Constipation Potassium Chloride (Kdur) 10 meq PO BIDCC [facility] Last Admin: 09/23/19 09:03 Dose: 10 meq Documented by: Potassium/Phosphorus/Sodium (Neutra Phos) 2 packet PO BIDP PRN PRN Reason: Phosphorus less than 2.6 Senna/Docusate Sodium (Senna Plus Tablet) 1 tab PO HS [facility] Last Admin: 09/22/19 20:27 Dose: 1 tab Documented by: Sodium Chloride (Saline Flush) 10 ml IV Q8 [facility] Last Admin: 09/23/19 05:21 Dose: Not Given Documented by: Vancomycin HCl (Vancomycin Per Pharmacy) 1 order IV UD [facility]; Protocol Medical - PN: A/P - Time Spent With Patient Total time spent is greater than 50% in coordination of care (as documented) at patient's floor/unit and/or counseling patient: - Narrative A/P Narrative: A: *AFib RVR: -off dilt gtt *Periorbital cellulitis with facial erysipelas: -clinically improving on antibiotic coverage. *h/o CAD: *HTN: *Hypothyroidism: on levothyroxine *Anxiety disorder: as needed ativan Plan: -Continue rate control measures and increase metoprolol to 50 twice daily -IV and ophthalmic antibiotic -cont home lasix -PT OT nutrition support -discharge likely in 24 to 48 hours -ppx: Apixaban/home ppi Medical - PN: Qual - VTE Deep Vein Thrombosis/Pulmonary Embolism Present on Admission: No
[2019-09-23] MEDS: MONTELUKAST 10 MG TABLET PO SCH (20:05)
[2019-09-23] MEDS: BACLOFEN 10 MG TABLET PO SCH (20:05)
[2019-09-23] MEDS: SENNOSIDES/DOCUSATE SODIUM 1 TAB TABLET PO SCH (20:05)
[2019-09-23] MEDS ORDERED: METOPROLOL SUCCINATE 25 MG TAB.XL.24H PO SCH (21:00)
[2019-09-24] MEDS: CIPROFLOXACIN 0.3% OPHTH DROPS BOTTLE OU SCH ×14 (00:05→23:49)
[2019-09-24] MEDS: 0.9 % SODIUM CHLORIDE 1,000 ML IV SCH (00:40)
[2019-09-24] MEDS: 0.9 % SODIUM CHLORIDE 10 ML SYRINGE IV SCH ×3 (05:50→20:58)
[2019-09-24] MEDS ORDERED: METOPROLOL TARTRATE 5 MG/5 ML VIAL IV PRN (06:17)
[2019-09-24 06:20] LABS: Hematocrit 36.5 % (34.1-44.9); Hemoglobin 12.3 g/dL (11.2-15.7); Mean Cell Volume 101.4 fL (80.0-100.0); Mean Corpuscular HGB Conc 33.7 g/dL (31.0-36.0); Mean Platelet Volume 10.2 fL (7.4-10.4); Platelet Count 140 K/mcL (140-440); Red Cell Distribution Width 12.7 % (11.5-14.5); WBC 6.2 K/mcL (4.50-11.00)
[2019-09-24 07:01] LABS: ALT/SGPT 78 U/l (0-40); AST/SGOT 75 U/l (0-37); Albumin 3.1 gm/dL (3.2-5.2); Albumin/Globulin Ratio 0.9 (1.0-2.3); Alkaline Phosphatase 153 U/L (39-117); Bilirubin,Total 0.6 mg/dL (0.0-1.0); Blood Urea Nitrogen 8 mg/dl (8-23); Calcium 8.3 mg/dl (8.6-10.4); Carbon Dioxide 20 mmol/L (22-30); Chloride 105 mmol/L (96-108); Globulin 3.6 gm/dL (2.2-3.7); Glomerular Filtration Rate 84; Glucose 95 mg/dL (70-105); Lactate Dehydrogenase 212 U/L (94-250); Phosphorous 2.6 mg/dL (2.7-4.5); Triglycerides 52 mg/dl (<150); Uric Acid 2.8 mg/dL (2.5-8.0)
[2019-09-24 07:03] LABS: Bilirubin,Direct < 0.2 mg/dL (0.0-0.3)
[2019-09-24] MEDS: OMEPRAZOLE 20 MG CAPSULE PO SCH (07:11)
[2019-09-24] MEDS ORDERED: METOPROLOL TARTRATE 5 MG/5 ML VIAL IV ONE (07:11)
[2019-09-24] MEDS: LEVOTHYROXINE 25 MCG TABLET PO SCH (07:11)
[2019-09-24] MEDS: LEVOTHYROXINE SODIUM 112 MCG TABLET PO SCH (07:11)
[2019-09-24] MEDS: LORazepam 0.5 MG TABLET PO PRN ×2 (07:11→21:40)
--- NOTE | 2019-09-24 07:20 | Internal Med Progress Note ---
Medical - PN: Subj Patient information: Note initiated : 09/24/19 at 7:17 am Service Date, if different from initiated Date: [] Patient: Tamiko Mendoza 84 y/o F admitted on 09/21/19 for fever eye swelling. Chief Complaint: [] Interval history: Ms. Mendoza is a 84 year old F resident of [facility] with a history of hypertension/A. fib/facial erysipelas who presents to the ER with significant left eye swelling along with fever that have progressed and worsened over the last 24 hours. Initial work-up in the ER was consistent with left periorbital cellulitis along with facial cellulitis on CT. Ophthalmology was consulted by ER. Initial white count 7.4. Cultures were drawn and antibiotics were initiated. Patient was also found to be in A. fib with RVR and subsequently diltiazem was initiated. H ospital service was consulted. At the time evaluation patient is alert and oriented. She is very hard of hearing but was able to provide minimal history. Most of the history was obtained from review of medical records and from ER physician. No family members present.. Patient endorses to weakness/fever but denies difficulty swallowing, headache, vision changes nausea or neck stiffness. 429-patient doing well. Much improved facial swelling and redness since previous day. Slight opening of palpebral fissure noted. Continue antibiotic coverage. Start ophthalmic eyedrops. De-escalate antibiotics in 48 hours. Continue PT OT. COVID-19 test pending. Continue contact precautions. Improved rate controlled on diltiazem drip. 09/22-patient clinically improved. No overnight events. Left-sided facial swelling/periorbital erythema induration much improved. Able to open her eyes. Afebrile. Telemetry A. fib rate controlled. Currently diltiazem at 15. Increased dose of oral metoprolol and wean diltiazem drip. Continue antibiotic coverage. No fever chills. Magnesium improved to 2, phosphorus 2.4 09/23 Difficult to obtain any history given her severe hearing impairment. She does note that she sees better. Per nursing swelling is improved. Gets anxious at times. And it seems her heart rate elevates at these times. Per nursing the patient takes Ativan 4 times a day regularly. Unable to gather review of systems giving significant hearing impairment - Constitutional Vitals: Vital Signs Temp Pulse Resp BP Pulse Ox 98.9 F 100 H 15 128/92 95 09/24/19 04:02 09/24/19 02:00 09/24/19 06:01 09/24/19 06:01 09/24/19 06:01 Period Temp Pulse Resp BP Sys/Huang Pulse Ox Last 24 Hr 98.9 F-99.4 F 100 12-39 105-146/49-106 90-96 Intake and Output 09/23/19 09/24/19 09/24/19 21:59 05:59 13:59 Intake Total 1120 Output Total 611 302 Balance 509 -302 Weight 80.966 kg Intake & Output: Intake & Output 09/23/19 09/24/19 09/24/19 21:59 05:59 13:59 Intake Total 1120 Output Total 611 302 Balance 509 -302 Weight 80.966 kg Intake: IV 1000 Sodium Chloride 0.9% 1,000 ml @ 1000 50 mls/hr IV .Q20H [facility] Rx#: [id number] Oral 120 Output: Void Amount 400 # of times incontinent of urine 11 2 Urine/Stool Mix 300 Stool 200 Other: Meal Dinner Percent of Meal Consumed 25% Feeding Ability Assist with Tray Set Up Urine Appearance Clear Clear Urine Color Dark Yellow Dark Yellow Urine Odor Normal Normal Stool Size Moderate Moderate Stool Color Brown Brown Stool Consistency Liquid Liquid Watery Watery Loose Exam: General: Alert, Awake, No acute Distress Eyes/N/T: EOMI, left face erythema/swelling improved Head/Neck: neck supple, CV: irreg irreg, No murmurs, Pulm: Clear b/l, no wheezing/rhonchi/rales Abd: soft, nontender, +BS x4 Ext: no clubbing/cyanosis/edema Neuro: Alert, no focal deficits, moves all extremities, Skin: warm/dry Medical - PN: Obj Da - Labs CBC & Chem 7: 09/24/19 04:50 09/24/19 04:50 Labs: Abnormal Lab Results 09/24/19 09/24/19 09/23/19 04:50 04:50 05:00 RBC MCV 101.4 H MCH 34.2 H Plt Count WBC Morphology Toxic Granulation RBC Morphology Macrocytosis Carbon Dioxide 20 L 20 L Creatinine 0.5 L Glucose 108 H Calcium 8.3 L 8.5 L Phosphorus 2.6 L 2.4 L Magnesium Total Bilirubin GGT 40 H AST 75 H 111 H ALT 78 H 52 H Alkaline Phosphatase 153 H 132 H C-Reactive Protein NT-Pro-B Natriuret Pep Albumin 3.1 L Globulin Albumin/Globulin Ratio 0.9 L 0.9 L Ur Leukocyte Esterase Urine RBC Urine WBC Ur Squamous Epith Cells 09/23/19 09/22/19 09/22/19 05:00 10:16 10:16 RBC 3.56 L MCV 100.6 H 101.6 H MCH 34.5 H Plt Count 132 L WBC Morphology Toxic Granulation RBC Morphology Abnorm A Macrocytosis 1+ A Carbon Dioxide Creatinine Glucose 134 H Calcium Phosphorus 2.4 L Magnesium 1.5 L Total Bilirubin 1.2 H GGT AST ALT Alkaline Phosphatase C-Reactive Protein NT-Pro-B Natriuret Pep Albumin Globulin 4.0 H Albumin/Globulin Ratio 0.9 L Ur Leukocyte Esterase Urine RBC Urine WBC Ur Squamous Epith Cells 09/22/19 09/21/19 09/21/19 01:00 20:30 16:45 RBC MCV 101.9 H MCH 34.4 H Plt Count 135 L WBC Morphology Abnorm A Toxic Granulation 1+ A RBC Morphology Abnorm A Macrocytosis 1+ A Carbon Dioxide Creatinine Glucose Calcium Phosphorus Magnesium Total Bilirubin GGT AST ALT Alkaline Phosphatase C-Reactive Protein 2.8 H NT-Pro-B Natriuret Pep 672.3 H Albumin Globulin Albumin/Globulin Ratio Ur Leukocyte Esterase 500 A Urine RBC 6 H Urine WBC 22 H Ur Squamous Epith Cells 9 H Meds: Medications Acetaminophen (Tylenol) 650 mg PO Q4-6HP PRN; Protocol PRN Reason: Per Pain Protocol/Fever > 101 Last Admin: 09/22/19 10:24 Dose: 650 mg Documented by: Al Hydrox/Mg Hydrox/Simethicone (Maalox) 10 ml PO Q4HP PRN PRN Reason: Constipation Apixaban (Eliquis) 2.5 mg PO BID [facility] Last Admin: 09/23/19 20:05 Dose: 2.5 mg Documented by: Artificial Tears (Refresh Celluvisc) 1 each OU DAILYP PRN PRN Reason: Dry Eyes Baclofen (Lioresal) 10 mg PO HS [facility] Last Admin: 09/23/19 20:05 Dose: 10 mg Documented by: Bisacodyl (Dulcolax) 10 mg NV Q2-3DAYS PRN PRN Reason: Constipation Last Admin: 09/22/19 10:24 Dose: 10 mg Documented by: Cefepime HCl (Maxipime) 2 gm IV Q12H [facility] Last Admin: 09/23/19 20:06 Dose: 2 gm Documented by: Ciprofloxacin (Ciloxan 0.3% Ophth Drops) 2 gtt OU Q2 [facility] Last Admin: 09/24/19 05:47 Dose: 2 gtt Documented by: Docusate Sodium (Colace) 100 mg PO BID [facility] Last Admin: 09/23/19 20:05 Dose: 100 mg Documented by: Furosemide (Lasix) 40 mg PO QDAY [facility] Last Admin: 09/23/19 09:03 Dose: 40 mg Documented by: Diltiazem HCl 125 mg/ Dextrose 125 mls @ 5 mls/hr IV Q12H [facility]; Protocol Last Admin: 09/23/19 18:27 Dose: Not Given Documented by: Sodium Chloride (Sodium Chloride 0.9%) 1,000 mls @ 50 mls/hr IV .Q20H [facility] Stop: 09/24/19 11:34 Last Admin: 09/24/19 00:40 Dose: 50 mls/hr Documented by: Vancomycin HCl 1,000 mg/ (Sodium Chloride) 250 mls @ 250 mls/hr IV Q12H [facility] Last Admin: 09/23/19 20:06 Dose: 125 mls/hr Documented by: Iron Carb/Multivit/[place]/Folic Acid (Multivitamin W/Minerals) 1 tab PO DAILY [facility] Last Admin: 09/23/19 09:03 Dose: 1 tab Documented by: Levothyroxine [facility] ([facility]throid) [facility] Last Admin: 09/24/19 07:11 Dose: 112 mcg Documented by: Levothyroxine Sodium (Synthroid) 25 mcg PO QAMAC [facility] Last Admin: 09/24/19 07:11 Dose: 25 mcg Documented by: Lorazepam (Ativan) 0.5 mg PO BIDP PRN PRN Reason: ANXIETY/SEDATION Last Admin: 09/24/19 07:11 Dose: 0.5 mg Documented by: Melatonin (Melatonin 3mg Tablet) 3 mg PO HSP PRN PRN Reason: Insomnia Metoprolol Succinate (Toprol Xl) 75 mg PO BID [facility] Metoprolol Tartrate (Lopressor) 5 mg IV Q2HP PRN PRN Reason: Tachyarrhythmias HR>110 Last Admin: 09/24/19 07:10 Dose: 5 mg Documented by: Montelukast Sodium (Singular) 10 mg PO HS [facility] Last Admin: 09/23/19 20:05 Dose: 10 mg Documented by: Omeprazole (Prilosec) 40 mg PO ACB [facility] Last Admin: 09/24/19 07:11 Dose: 40 mg Documented by: Ondansetron HCl (Zofran Odt) 4 mg SL Q4-6HP PRN; Protocol PRN Reason: Nausea And Vomiting Ondansetron HCl (Zofran) 4 mg IV Q4-6HP PRN; Protocol PRN Reason: Nausea And Vomiting Polyethylene Glycol (Miralax) 17 gm PO DAILYP PRN PRN Reason: Constipation Potassium Chloride (Kdur) 10 meq PO BIDCC [facility] Last Admin: 09/23/19 17:37 Dose: 10 meq Documented by: Potassium/Phosphorus/Sodium (Neutra Phos) 2 packet PO BIDP PRN PRN Reason: Phosphorus less than 2.6 Last Admin: 09/23/19 20:05 Dose: 2 packet Documented by: Senna/Docusate Sodium (Senna Plus Tablet) 1 tab PO [facility] Last Admin: 09/23/19 20:05 Dose: 1 tab Documented by: Sodium Chloride (Saline Flush) 10 ml IV Q8 [facility] Last Admin: 09/24/19 05:50 Dose: 10 ml Documented by: Vancomycin HCl (Vancomycin Per Pharmacy) 1 order IV [facility]; Protocol Medical - PN: A/P - Time Spent With Patient Total time spent is greater than 50% in coordination of care (as documented) at patient's floor/unit and/or counseling patient: - Narrative A/P Narrative: A: *AFib RVR: -off dilt gtt *Periorbital cellulitis with facial erysipelas: -clinically improving on antibiotic coverage. *h/o CAD: *HTN: *Hypothyroidism: on levothyroxine *Anxiety disorder: as needed ativan, takes usually 4x's per day at home Plan: -Continue rate control measures and increase metoprolol to 75 bid -IV and ophthalmic antibiotic -home ativan -cont home lasix -PT OT nutrition support -discharge likely in 24 to 48 hours -ppx: Apixaban/home ppi Medical - PN: Qual - VTE Deep Vein Thrombosis/Pulmonary Embolism Present on Admission: No
[2019-09-24 07:33] LABS: Eosinophils % (Manual) 4 % (0-7); Lymphocytes % 25 % (15-49); Macrocytosis 1+ (NONE SEEN); Monocytes % (Manual) 4 % (1-12); Platelet Estimate NORMAL (NORMAL); RBC Morphology ABNORM (NORMAL); Segmented Neutrophils % 67 % (38-78)
[2019-09-24] MEDS: DILTIAZEM 125 MG in DEXTROSE 5% IN WATER 100 ML IV SCH (07:50)
[2019-09-24] MEDS: DOCUSATE SODIUM 100 MG CAPSULE PO SCH ×2 (07:51→19:38)
[2019-09-24] MEDS ORDERED: LORazepam 1 MG TABLET PO PRN (08:23)
[2019-09-24] MEDS ORDERED: DILTIAZEM 125 MG in DEXTROSE 5% IN WATER 100 ML IV PRN (08:30)
[2019-09-24] MEDS ORDERED: METOPROLOL SUCCINATE 50 MG TAB.XL.24H PO SCH (09:00)
[2019-09-24] MEDS: FUROSEMIDE 20 MG TABLET PO SCH (09:10)
[2019-09-24] MEDS: MULTIVIT,THER IRON,CA,FA & MIN 1 TABLET PO SCH (09:10)
[2019-09-24] MEDS: METOPROLOL TARTRATE 50 MG TABLET PO SCH ×2 (09:10→20:48)
[2019-09-24] MEDS: APIXABAN 2.5 MG TABLET PO SCH ×2 (09:10→20:49)
[2019-09-24] MEDS: POTASSIUM CHLORIDE 10 MEQ TABLET PO SCH ×2 (09:10→17:27)
[2019-09-24] MEDS: VANCOMYCIN 1,000 MG in 0.9 % SODIUM CHLORIDE 250 ML IV SCH ×2 (09:31→21:10)
--- NOTE | 2019-09-24 10:01 | Discharge Summary ---
Medical - DS: Prov Patient information: Note initiated : 09/24/19 at 9:56 am Service Date, if different from initiated Date: [] Patient: Tamiko Mendoza 84 y/o F admitted on 09/21/19 for fever eye swelling. Chief Complaint: [] Date of admission: 09/21/19 23:28 Discharge date: 09/25/19 Primary care physician: Preston Almendarez Consults: 09/22/19 07:45 Consult to Physician [CONS] Routine Comment: Consulting Provider: Len Bhagat Reason For Exam: Physician to Consult Medical - DS: Meds - Discharge Medications Prescriptions: Sulfamethoxazole/Trimethoprim [Bactrim Ds] 1 tab PO BID #4 tab Cefdinir 300 mg PO BID #4 cap Metoprolol Tartrate [Lopressor] 75 mg PO BID #60 tab Active and Home Medications: Home Medications Artificial Tears Drops 2 drp BOTH EYES BID 09/09/16 [History Confirmed 09/22/19 Last Taken 09/07/16 19:30] Calcium 600 + Vit D Tablet 600 mg PO DAILY 09/09/16 [History Confirmed 09/22/19 Last Taken 09/07/16 19:30] Nystatin [Nyata] 1 applic TOPICAL BIDP PRN 09/09/16 [History Confirmed 09/22/19 Last Taken Unknown] acetaminophen 325 mg tablet 650 mg PO Q4-6HP PRN tab 02/25/18 [History Confirmed 09/22/19 Last Taken Unknown] apixaban 2.5 mg tablet 2.5 mg PO BID 02/25/18 [History Confirmed 09/22/19 Last Taken Unknown] cholestyramine-aspartame 4 gram oral powder 4 g PO BID g 02/25/18 [History Confirmed 09/22/19 Last Taken Unknown] furosemide 20 mg tablet 40 mg PO QDAY 02/25/18 [History Confirmed 09/22/19 Last Taken Unknown] potassium chloride 10 mEq capsule,extended release 10 meq PO BID 02/25/18 [History Confirmed 09/22/19 Last Taken Unknown] levothyroxine 137 mcg tablet 137 mcg PO QDAY 03/10/18 [History Confirmed 09/22/19 Last Taken Unknown] montelukast 10 mg tablet 10 mg PO HS 03/10/18 [History Confirmed 09/22/19 Last Taken Unknown] omeprazole 40 mg capsule,delayed release 40 mg PO QDAY 03/10/18 [History Confirmed 09/22/19 Last Taken Unknown] polyethylene glycol 3350 17 gram/dose oral powder 1 dose PO PRN PRN 03/10/18 [History Confirmed 09/22/19 Last Taken Unknown] aluminum-mag hydroxide-simethicone 200 mg-200 mg-20 mg/5 mL oral susp 10 ml PO Q4HP PRN 05/14/19 [History Confirmed 09/22/19 Last Taken Unknown] baclofen 10 mg tablet 10 mg PO QHS tab 05/14/19 [History Confirmed 09/22/19 Last Taken Unknown] carboxymethylcellulose sodium 0.5 % eye drops 1 drp OU PRN PRN 05/14/19 [History Confirmed 09/22/19 Last Taken Unknown] cholecalciferol (vitamin D3) 10 mcg (400 unit) capsule 800 unit PO QDAY cap 05/14/19 [History Confirmed 09/22/19 Last Taken Unknown] lorazepam 0.5 mg tablet 0.25 mg PO BIDP PRN tab 05/14/19 [History Confirmed 09/22/19 Last Taken Unknown] lorazepam 0.5 mg tablet 0.5 mg PO BID 05/14/19 [History Confirmed 09/22/19 Last Taken Unknown] metoprolol succinate 25 mg tablet,extended release 24 hr 25 mg PO BID tab 05/14/19 [History Confirmed 09/22/19 Last Taken Unknown] Doxycycline Hyclate [Vibramycin] 100 mg PO BID 09/21/19 [History Confirmed 09/22/19 Last Taken Unknown] Calcium Citrate 1,200 mg PO DAILY 09/22/19 [History Confirmed 09/22/19 Last Taken Unknown] Home Medications Artificial Tears Drops 2 drp BOTH EYES BID 09/09/16 [History Confirmed 09/22/19 Last Taken 09/07/16 19:30] Calcium 600 + Vit D Tablet 600 mg PO DAILY 09/09/16 [History Confirmed 09/22/19 Last Taken 09/07/16 19:30] Nystatin [Nyata] 1 applic TOPICAL BIDP PRN 09/09/16 [History Confirmed 09/22/19 Last Taken Unknown] acetaminophen 325 mg tablet 650 mg PO Q4-6HP PRN tab 02/25/18 [History Confirmed 09/22/19 Last Taken Unknown] apixaban 2.5 mg tablet 2.5 mg PO BID 02/25/18 [History Confirmed 09/22/19 Last Taken Unknown] cholestyramine-aspartame 4 gram oral powder 4 g PO BID g 02/25/18 [History Confirmed 09/22/19 Last Taken Unknown] furosemide 20 mg tablet 40 mg PO QDAY 02/25/18 [History Confirmed 09/22/19 Last Taken Unknown] potassium chloride 10 mEq capsule,extended release 10 meq PO BID 02/25/18 [History Confirmed 09/22/19 Last Taken Unknown] levothyroxine 137 mcg tablet 137 mcg PO QDAY 03/10/18 [History Confirmed 09/22/19 Last Taken Unknown] montelukast 10 mg tablet 10 mg PO HS 03/10/18 [History Confirmed 09/22/19 Last Taken Unknown] omeprazole 40 mg capsule,delayed release 40 mg PO QDAY 03/10/18 [History Confirmed 09/22/19 Last Taken Unknown] polyethylene glycol 3350 17 gram/dose oral powder 1 dose PO PRN PRN 03/10/18 [History Confirmed 09/22/19 Last Taken Unknown] aluminum-mag hydroxide-simethicone 200 mg-200 mg-20 mg/5 mL oral susp 10 ml PO Q4HP PRN 05/14/19 [History Confirmed 09/22/19 Last Taken Unknown] baclofen 10 mg tablet 10 mg PO QHS tab 05/14/19 [History Confirmed 09/22/19 Last Taken Unknown] carboxymethylcellulose sodium 0.5 % eye drops 1 drp OU PRN PRN 05/14/19 [History Confirmed 09/22/19 Last Taken Unknown] cholecalciferol (vitamin D3) 10 mcg (400 unit) capsule 800 unit PO QDAY cap 05/14/19 [History Confirmed 09/22/19 Last Taken Unknown] lorazepam 0.5 mg tablet 0.25 mg PO BIDP PRN tab 05/14/19 [History Confirmed 09/22/19 Last Taken Unknown] lorazepam 0.5 mg tablet 0.5 mg PO BID 05/14/19 [History Confirmed 09/22/19 Last Taken Unknown] Calcium Citrate 1,200 mg PO DAILY 09/22/19 [History Confirmed 09/22/19 Last Taken Unknown] Cefdinir 300 mg PO BID #4 capsule 09/24/19 [Rx Last Taken Unknown] Metoprolol Tartrate [Lopressor] 75 mg PO BID #60 tablet 09/24/19 [Rx Last Taken Unknown] Sulfamethoxazole/Trimethoprim [Bactrim Ds] 1 tab PO BID #4 tablet 09/24/19 [Rx Last Taken Unknown] Medical - DS: Hosp Hospital Course: Ms. Mendoza is a 84 year old F resident of [facility] with a history of hypertension/A. fib/facial erysipelas who presents to the ER with significant left eye swelling along with fever that have progressed and worsened over the last 24 hours. Initial work-up in the ER was consistent with left periorbital cellulitis along with facial cellulitis on CT. Ophthalmology was consulted by ER. Initial white count 7.4. Cultures were drawn and antibiotics were initiated. Patient was also found to be in A. fib with RVR and subsequently diltiazem was initiated. Hospital service was consulted. At the time evaluation patient is alert and oriented. She is very hard of hearing but was able to provide minimal history. Most of the history was obtained from review of medical records and from ER physician. No family members present.. Patient endorses to weakness/fever but denies difficulty swallowing, headache, vision changes nausea or neck stiffness. 429-patient doing well. Much improved facial swelling and redness since previous day. Slight opening of palpebral fissure noted. Continue antibiotic coverage. Start ophthalmic eyedrops. De-escalate antibiotics in 48 hours. Continue PT OT. COVID-19 test pending. Continue contact precautions. Improved rate controlled on diltiazem drip. 09/22-patient clinically improved. No overnight events. Left-sided facial swelling/periorbital erythema induration much improved. Able to open her eyes. Afebrile. Telemetry A. fib rate controlled. Currently diltiazem at 15. Increased dose of oral toprol and wean diltiazem drip. Continue antibiotic coverage. No fever chills. Magnesium improved to 2, phosphorus 2.4 09/23 Difficult to obtain any history given her severe hearing impairment. She does note that she sees better. Per nursing swelling is improved. Gets anxious at times. Per nursing the patient takes Ativan 4 times a day regularly. However, her heart rate was 160 this morning per nurse switched from toprol to Lopressor and increased dose. 09/24 Doing well. Swelling improving. Heart rate much improved on Lopressor twice daily. No overnight event or new complaints. A: *AFib RVR: -However, continued to elevate and thus switched from toprol to Lopressor and increased dose *Periorbital cellulitis with facial erysipelas: -clinically improving on antibiotic coverage. *h/o CAD: *HTN: *Hypothyroidism: on levothyroxine *Anxiety disorder: as needed ativan, takes usually 4x's per day at home Discharge diagnosis: Left periorbital cellulitis with facial erysipelas A. fib RVR Secondary discharge diagnosis: History of CAD hypertension hypothyroidism anxiety - Time Spent with Patient Total time spent providing and/or coordinating discharge services: Greater than 30 minutes Medical - DS: Exam - Constitutional Vitals: Vital Signs Temp Pulse Resp BP Pulse Ox 09/24/19 06:01 15 128/92 95 09/24/19 04:02 98.9 F 13 136/76 94 09/24/19 02:01 98.9 F 20 115/82 94 09/24/19 02:00 100 H 12 92 09/24/19 00:01 98.9 F 20 138/86 09/23/19 22:08 17 132/70 94 09/23/19 20:37 99.4 F H 37 H 145/99 94 09/23/19 20:01 19 146/104 09/23/19 19:46 96 09/23/19 18:15 29 H 141/99 09/23/19 16:43 98.9 F 28 H 123/92 94 09/23/19 16:31 39 H 123/92 09/23/19 16:01 22 105/70 96 09/23/19 15:31 21 140/74 09/23/19 15:12 22 135/63 09/23/19 15:00 24 H 135/63 93 09/23/19 13:31 29 H 141/80 09/23/19 13:11 21 125/106 09/23/19 11:01 16 Intake and Output 09/23/19 09/24/19 09/24/19 21:59 05:59 13:59 Intake Total 1120 250 Output Total 611 302 450 Balance 509 302 200 Intake: IV 1000 250 Sodium Chloride 0.9% 1,000 ml @ 1000 50 mls/hr IV .Q20H [facility] Rx#: [id number] Vancomycin 1,000 mg In Sodium 250 Chloride 0.9% 250 ml @ 250 mls/ hr IV Q12H [facility] Rx#:[id number] Oral 120 Output: Void Amount 400 # of times incontinent of urine 11 2 Urine/Stool Mix 300 450 Stool 200 Other: Meal Dinner Percent of Meal Consumed 25% Feeding Ability Assist with Tray Set Up Urine Appearance Clear Clear Urine Color Dark Yellow Dark Yellow Urine Odor Normal Normal Stool Size Moderate Moderate Small Stool Color Brown Brown Brown Stool Consistency Liquid Liquid Watery Watery Loose Weight 80.966 kg Medical - DS: Data Labs on day of discharge: Labs from last 24 hours 09/24/19 09/24/19 09/24/19 08:12 04:50 04:50 WBC 6.2 RBC 3.60 Hgb 12.3 Hct 36.5 MCV 101.4 H MCH 34.2 H MCHC 33.7 RDW 12.7 Plt Count 140 MPV 10.2 Total Counted 100 Seg Neutrophils % 67 Band Neutrophils % Not Reportable Lymphocytes % 25 Monocytes % (Manual) 4 Eosinophils % (Manual) 4 Platelet Estimate Normal RBC Morphology Abnorm A Macrocytosis 1+ A Sodium 139 Potassium 3.6 Chloride 105 Carbon Dioxide 20 L Anion Gap 14.0 BUN 8 Creatinine 0.6 GFR Calculation 84 Glucose 95 Uric Acid 2.8 Calcium 8.3 L Phosphorus 2.6 L Magnesium 1.8 Total Bilirubin 0.6 Direct Bilirubin < 0.2 GGT 40 H AST 75 H ALT 78 H Alkaline Phosphatase 153 H Lactate Dehydrogenase 212 Total Protein 6.7 Albumin 3.1 L Globulin 3.6 Albumin/Globulin Ratio 0.9 L Triglycerides 52 Vancomycin Trough 11.2 Preliminary micro results at discharge 09/21/19 16:18 Blood Culture - Preliminary Blood 09/21/19 16:45 Blood Culture - Preliminary Blood Medical - DS: A/P - Patient/Caregiver Discharge Instructions Activity: increase activity as tolerated Diet: Cardiac Prescriptions: Sulfamethoxazole/Trimethoprim [Bactrim Ds] 1 tab PO BID #4 tab Cefdinir 300 mg PO BID #4 cap Metoprolol Tartrate [Lopressor] 75 mg PO BID #60 tab - Follow up Plan Follow up with: Preston Almendarez MD [Primary Care Provider] - Disposition: Home, Self-Care Prognosis: Fair Rehab Potential: Fair Overall status at discharge: patient is progressing back to baseline Medical - DS: Qual - VTE Deep Vein Thrombosis/Pulmonary Embolism Present on Admission: No
[2019-09-24] MEDS: CEFEPIME 2 GM VIAL IV SCH ×2 (10:06→20:58)
[2019-09-24] MEDS: SENNOSIDES/DOCUSATE SODIUM 1 TAB TABLET PO SCH (19:38)
[2019-09-24] MEDS: BACLOFEN 10 MG TABLET PO SCH (20:49)
[2019-09-24] MEDS: MONTELUKAST 10 MG TABLET PO SCH (20:49)
[2019-09-25] MEDS: CIPROFLOXACIN 0.3% OPHTH DROPS BOTTLE OU SCH ×4 (02:11→08:18)
[2019-09-25] MEDS: LORazepam 0.5 MG TABLET PO PRN (04:35)
[2019-09-25] MEDS: 0.9 % SODIUM CHLORIDE 10 ML SYRINGE IV SCH (05:57)
[2019-09-25] MEDS: LEVOTHYROXINE 25 MCG TABLET PO SCH (08:18)
[2019-09-25] MEDS: OMEPRAZOLE 20 MG CAPSULE PO SCH (08:18)
[2019-09-25] MEDS: LEVOTHYROXINE SODIUM 112 MCG TABLET PO SCH (08:18)
[2019-09-25] MEDS: APIXABAN 2.5 MG TABLET PO SCH (09:17)
[2019-09-25] MEDS: FUROSEMIDE 20 MG TABLET PO SCH (09:17)
[2019-09-25] MEDS: POTASSIUM CHLORIDE 10 MEQ TABLET PO SCH (09:17)
[2019-09-25] MEDS: MULTIVIT,THER IRON,CA,FA & MIN 1 TABLET PO SCH (09:17)
[2019-09-25] MEDS: METOPROLOL TARTRATE 50 MG TABLET PO SCH (09:17)
[2019-09-25] MEDS: VANCOMYCIN 1,000 MG in 0.9 % SODIUM CHLORIDE 250 ML IV SCH (09:32)
[2019-09-25] MEDS: CEFEPIME 2 GM VIAL IV SCH (09:33)
== END 2019-09-25 11:15 | disposition home or self-care (01) | DRG 603 ==
LOC: ED 15:34 → ICU 23:28 → MEDSUR 09-24 17:44
PROVIDERS: ADMIT Internal Medicine; ATTEND Internal Medicine

== ENCOUNTER 2023-05-29 12:03 | Inpatient (IN) ==
[2023-05-29] MEDS ORDERED: ONDANSETRON 4 MG/2 ML VIAL IV ONE (13:46)
[2023-05-29] MEDS ORDERED: morphine 2 MG/ML VIAL IV ONE (13:46)
[2023-05-29 14:56] LABS: Basophils # (Auto) 0.01 K/mcL (0.00-0.30); Basophils % (Auto) 0.1 % (0.0-2.0); Eosinophils # (Auto) 0.02 K/mcL (0.00-0.70); Eosinophils % (Auto) 0.1 % (0.0-7.0); Hematocrit 32.2 % (34.1-44.9); Hemoglobin 10.8 g/dL (11.2-15.7); Lymphocytes % (Auto) 4.2 % (15.5-49.0); Mean Cell Volume 104.2 fL (80.0-100.0); Mean Corpuscular HGB Conc 33.5 g/dL (31.0-36.0); Mean Platelet Volume 9.6 fL (8.8-12.5); Monocytes # (Auto) 0.55 K/mcL (0.10-0.90); Monocytes % (Auto) 3.9 % (1.0-12.0); Neutrophils % (Auto) 91.4 % (38.0-78.0); Platelet Count 133 K/mcL (140-440); RBC 3.09 M/mcL (3.59-5.38); Red Cell Distribution Width 13.9 % (11.5-14.5); WBC 14.3 K/mcL (4.5-11.0)
[2023-05-29 15:21] LABS: ALT/SGPT < 5 U/L (<40); AST/SGOT 21 U/L (<32); Albumin/Globulin Ratio 1.3 (1.0-2.3); Alkaline Phosphatase 113 U/L (39-117); Bilirubin,Total 1.7 mg/dL (0.1-1.0); Blood Urea Nitrogen 19 mg/dL (8-23); Calcium 9.5 mg/dL (8.6-10.4); Carbon Dioxide 24 mmol/L (22-30); Chloride 97 mmol/L (96-108); Globulin 3.2 gm/dL (2.2-3.7); Glomerular Filtration Rate 86; Glucose 124 mg/dL (70-105)
[2023-05-29 15:57] LABS: INR 1.3 (0.9-1.1); Prothrombin Time 16.6 sec (11.9-14.5)
[2023-05-29 18:05] LABS: Appearance,Urine Clear (Clear); Bacteria,Urine Many /hpf ({null, 0}); Bilirubin,Urine Negative (Negative); Color,Urine Yellow; Culture Indicated,Urine Yes; Glucose,Urine (UA) Negative (Negative); Ketones,Urine Negative (Negative); Leukocyte Esterase,Urine Negative /uL (Negative); Nitrate,Urine Positive (Negative); PH,Urine 5.5 (5.0-9.0); Protein,Urine 100 mg/dL (Negative); Specific Gravity,Urine >= 1.030 (1.000-1.035); Urine Blood 1+(Small) ery/mcL (Negative); Urine RBC 1 /hpf (0-3); Urine Squamous Epithelial Cell 1 /hpf (0-4); Urine WBC 7 /hpf (0-4); Urobilinogen,Urine Normal
[2023-05-29] MEDS ORDERED: POLYETHYLENE GLYCOL 3350 17 GM PACKET PO PRN (18:42)
[2023-05-29] MEDS ORDERED: POTASSIUM CHLORIDE 40 MEQ in DEXTROSE 5% IN WATER 500 ML IV PRN (18:42)
[2023-05-29] MEDS ORDERED: ONDANSETRON 4 MG/2 ML VIAL IV PRN (18:42)
[2023-05-29] MEDS ORDERED: POTASSIUM CHLORIDE 20 MEQ TABLET PO PRN ×2 (18:42)
[2023-05-29] MEDS ORDERED: METOPROLOL TARTRATE 5 MG/5 ML VIAL IV PRN (18:42)
[2023-05-29] MEDS ORDERED: SENNOSIDES 1 TABLET PO PRN (18:42)
[2023-05-29] MEDS ORDERED: IPRATROPIUM/ALBUTEROL 3 ML AMPUL.NEB NEB PRN (18:42)
[2023-05-29] MEDS ORDERED: MAGNESIUM SULFATE 2 GM/50 ML BAG IV PRN (18:42)
[2023-05-29] MEDS: DOCUSATE SODIUM 100 MG CAPSULE PO SCH (20:32)
[2023-05-29] MEDS: cefTRIAXone 1 GM VIAL IV SCH (20:33)
[2023-05-29] MEDS: 0.9 % SODIUM CHLORIDE 10 ML SYRINGE IV SCH (22:19)
[2023-05-29] MEDS: morphine 4 MG/ML VIAL IV PRN (23:10)
[2023-05-29] MEDS ORDERED: 0.9 % SODIUM CHLORIDE 1,000 ML IV SCH (23:30)
[2023-05-30] MEDS: morphine 4 MG/ML VIAL IV PRN ×3 (02:43→22:54)
[2023-05-30] MEDS: 0.9 % SODIUM CHLORIDE 10 ML SYRINGE IV SCH ×3 (05:57→22:24)
[2023-05-30 06:31] LABS: Basophils # (Auto) 0.01 K/mcL (0.00-0.30); Basophils % (Auto) 0.1 % (0.0-2.0); Eosinophils # (Auto) 0.04 K/mcL (0.00-0.70); Eosinophils % (Auto) 0.4 % (0.0-7.0); Hematocrit 27.5 % (34.1-44.9); Hemoglobin 9.2 g/dL (11.2-15.7); Lymphocytes % (Auto) 6.1 % (15.5-49.0); Mean Cell Volume 107.4 fL (80.0-100.0); Mean Corpuscular HGB Conc 33.5 g/dL (31.0-36.0); Mean Platelet Volume 9.9 fL (8.8-12.5); Monocytes # (Auto) 0.47 K/mcL (0.10-0.90); Monocytes % (Auto) 4.1 % (1.0-12.0); Platelet Count 124 K/mcL (140-440); RBC 2.56 M/mcL (3.59-5.38); Red Cell Distribution Width 14.5 % (11.5-14.5); WBC 11.4 K/mcL (4.5-11.0)
[2023-05-30 07:10] LABS: ALT/SGPT < 5 U/L (<40); AST/SGOT 19 U/L (<32); Albumin 3.4 gm/dL (3.2-5.2); Albumin/Globulin Ratio 1.1 (1.0-2.3); Alkaline Phosphatase 100 U/L (39-117); Bilirubin,Direct 0.5 mg/dL (<0.3); Bilirubin,Total 1.3 mg/dL (0.1-1.0); Blood Urea Nitrogen 22 mg/dL (8-23); Carbon Dioxide 23 mmol/L (22-30); Chloride 99 mmol/L (96-108); Globulin 3.2 gm/dL (2.2-3.7); Glomerular Filtration Rate 81; Glucose 116 mg/dL (70-105); Lactate Dehydrogenase 274 U/L (135-225); Triglycerides 65 mg/dL (<150)
[2023-05-30] MEDS: ACETAMINOPHEN 325 MG TABLET PO PRN (07:26)
[2023-05-30] MEDS: DOCUSATE SODIUM 100 MG CAPSULE PO SCH ×2 (08:10→20:57)
[2023-05-30] MEDS: cefTRIAXone 1 GM VIAL IV SCH (08:13)
[2023-05-30] MEDS ORDERED: MAG HYDROX/AL HYDROX/SIMETH 30 ML ORAL.SUSP PO PRN (08:18)
[2023-05-30] MEDS ORDERED: [UNRECOGNIZED DRUG - OTHER] TOPICAL PRN (08:18)
[2023-05-30] MEDS ORDERED: CARBOXYMETHYLCELLULOSE SODIUM 1 EACH DROPER.GEL OU PRN (08:33)
[2023-05-30] MEDS ORDERED: LOPERAMIDE 2 MG CAPSULE PO PRN (08:34)
[2023-05-30] MEDS ORDERED: SCOPOLAMINE 1 PATCH PATCH TOPICAL PRN (09:15)
[2023-05-30] MEDS: LORazepam 0.5 MG TABLET PO SCH ×3 (10:58→20:57)
[2023-05-30] MEDS ORDERED: METOPROLOL TARTRATE 50 MG TABLET PO SCH (11:30)
[2023-05-30] MEDS: BACLOFEN 10 MG TABLET PO SCH ×2 (11:36→20:57)
[2023-05-30] MEDS ORDERED: LORazepam 2 MG/ML VIAL IV ONE (11:55)
[2023-05-30] MEDS ORDERED: CYANOCOBALAMIN 1,000 MCG/ML VIAL IM ONE (12:31)
[2023-05-30] MEDS: MONTELUKAST 10 MG TABLET PO SCH (20:56)
[2023-05-31] MEDS: morphine 4 MG/ML VIAL IV PRN ×5 (02:32→18:36)
[2023-05-31] MEDS: ACETAMINOPHEN 325 MG TABLET PO PRN (02:44)
[2023-05-31] MEDS: 0.9 % SODIUM CHLORIDE 10 ML SYRINGE IV SCH ×3 (05:35→20:12)
[2023-05-31 06:07] LABS: Basophils # (Auto) 0.02 K/mcL (0.00-0.30); Basophils % (Auto) 0.3 % (0.0-2.0); Eosinophils # (Auto) 0.21 K/mcL (0.00-0.70); Eosinophils % (Auto) 2.7 % (0.0-7.0); Hematocrit 27.3 % (34.1-44.9); Hemoglobin 9.1 g/dL (11.2-15.7); Lymphocytes # (Auto) 0.95 K/mcL (1.50-4.80); Mean Cell Volume 106.6 fL (80.0-100.0); Mean Corpuscular HGB Conc 33.3 g/dL (31.0-36.0); Mean Platelet Volume 10.3 fL (8.8-12.5); Monocytes # (Auto) 0.48 K/mcL (0.10-0.90); Monocytes % (Auto) 6.1 % (1.0-12.0); Neutrophils % (Auto) 78.6 % (38.0-78.0); Platelet Count 127 K/mcL (140-440); RBC 2.56 M/mcL (3.59-5.38); Red Cell Distribution Width 14.6 % (11.5-14.5); WBC 7.9 K/mcL (4.5-11.0)
[2023-05-31 06:13] LABS: ALT/SGPT 7 U/L (<40); AST/SGOT 23 U/L (<32); Albumin 3.4 gm/dL (3.2-5.2); Alkaline Phosphatase 92 U/L (39-117); Bilirubin,Direct 0.5 mg/dL (<0.3); Bilirubin,Total 1.3 mg/dL (0.1-1.0); Blood Urea Nitrogen 27 mg/dL (8-23); Calcium 8.9 mg/dL (8.6-10.4); Carbon Dioxide 25 mmol/L (22-30); Chloride 102 mmol/L (96-108); Globulin 3.4 gm/dL (2.2-3.7); Glomerular Filtration Rate 81; Glucose 103 mg/dL (70-105); Lactate Dehydrogenase 193 U/L (135-225); Phosphorous 2.9 mg/dL (2.5-4.5); Triglycerides 75 mg/dL (<150); Uric Acid 4.5 mg/dL (2.5-8.0)
[2023-05-31] MEDS: OMEPRAZOLE 20 MG CAPSULE PO SCH ×2 (07:49→07:59)
[2023-05-31] MEDS ORDERED: LORazepam 0.5 MG TABLET PO PRN (08:15)
[2023-05-31] MEDS ORDERED: 0.9 % SODIUM CHLORIDE 1,000 ML IV SCH (08:15)
[2023-05-31] MEDS ORDERED: ENALAPRILAT 1.25 MG/ML VIAL IV PRN (08:15)
[2023-05-31] MEDS: cefTRIAXone 1 GM VIAL IV SCH (08:44)
[2023-05-31] MEDS ORDERED: METOPROLOL TARTRATE 50 MG TABLET PO SCH (09:00)
[2023-05-31] MEDS ORDERED: CYANOCOBALAMIN (VITAMIN B-12) 500 MCG TABLET PO SCH (09:00)
[2023-05-31] MEDS: LEVOTHYROXINE 25 MCG TABLET PO SCH (09:51)
[2023-05-31] MEDS: LEVOTHYROXINE SODIUM 112 MCG TABLET PO SCH (09:52)
[2023-05-31] MEDS: DOCUSATE SODIUM 100 MG CAPSULE PO SCH ×2 (09:52→20:11)
[2023-05-31] MEDS: BACLOFEN 10 MG TABLET PO SCH ×2 (09:53→20:11)
[2023-05-31] MEDS: CYANOCOBALAMIN (VITAMIN B-12) 500 MCG TABLET PO SCH ×2 (09:53→20:12)
[2023-05-31] MEDS: hydrALAZINE 20 MG/ML VIAL IV PRN ×3 (10:06→18:49)
[2023-05-31] MEDS: HYDROcodone/APAP 5/325MG TABLET PO PRN (16:38)
[2023-05-31] MEDS: MONTELUKAST 10 MG TABLET PO SCH (20:12)
[2023-06-01] MEDS: morphine 4 MG/ML VIAL IV PRN ×2 (00:44→03:46)
[2023-06-01] MEDS: hydrALAZINE 20 MG/ML VIAL IV PRN (00:57)
[2023-06-01] MEDS: 0.9 % SODIUM CHLORIDE 10 ML SYRINGE IV SCH ×3 (04:58→22:22)
[2023-06-01 06:23] LABS: Blood Urea Nitrogen 30 mg/dL (8-23); Calcium 9.2 mg/dL (8.6-10.4); Carbon Dioxide 21 mmol/L (22-30); Chloride 105 mmol/L (96-108); Glomerular Filtration Rate 81; Glucose 119 mg/dL (70-105)
[2023-06-01] MEDS: LEVOTHYROXINE 25 MCG TABLET PO SCH ×3 (06:47→10:29)
[2023-06-01] MEDS: OMEPRAZOLE 20 MG CAPSULE PO SCH (06:47)
[2023-06-01] MEDS: LEVOTHYROXINE SODIUM 112 MCG TABLET PO SCH ×3 (06:48→10:29)
[2023-06-01] MEDS ORDERED: LIDOCAINE 2% PF 5 ML VIAL ONE (07:41)
[2023-06-01] MEDS ORDERED: ONDANSETRON 4 MG/2 ML VIAL ONE (07:41)
[2023-06-01] MEDS ORDERED: KETAMINE 50 MG/ML Syringe IV ONE (07:41)
[2023-06-01] MEDS ORDERED: DEXAMETHASONE 10 MG/ML VIAL ONE (07:41)
[2023-06-01] MEDS ORDERED: PROPOFOL 200 MG/20 ML VIAL IV ONE (07:42)
[2023-06-01] MEDS ORDERED: MAGNESIUM SULFATE 2 GM/50 ML BAG IV ONE (07:42)
[2023-06-01] MEDS ORDERED: SCOPOLAMINE 1 PATCH PATCH TOPICAL PRN (08:00)
[2023-06-01] MEDS ORDERED: ceFAZolin 1 GM VIAL ONE (08:26)
[2023-06-01] MEDS ORDERED: ePHEDrine 50 MG/5 ML SYRINGE (ANEST) IV ONE (08:31)
[2023-06-01] MEDS ORDERED: fentaNYL 100 MCG/2 ML VIAL IV ONE (08:52)
[2023-06-01] MEDS ORDERED: IPRATROPIUM/ALBUTEROL 3 ML AMPUL.NEB NEB PRN (09:18)
[2023-06-01] MEDS ORDERED: MEPERIDINE 25 MG/ML VIAL IV PRN (09:18)
[2023-06-01] MEDS ORDERED: fentaNYL 100 MCG/2 ML VIAL IV PRN (09:18)
[2023-06-01] MEDS ORDERED: PROMETHAZINE 25 MG/ML VIAL IV PRN (09:18)
[2023-06-01] MEDS ORDERED: diphenhydrAMINE 50 MG/ML VIAL IV PRN (09:18)
[2023-06-01] MEDS ORDERED: NALOXONE HCL 0.4 MG/ML VIAL IV PRN (09:18)
[2023-06-01] MEDS ORDERED: ONDANSETRON 4 MG/2 ML VIAL IV PRN (09:18)
[2023-06-01] MEDS ORDERED: METHOCARBAMOL 1,000 MG/10 ML VIAL IV PRN (09:18)
[2023-06-01] MEDS ORDERED: LACTATED RINGERS 250 ML IV PRN (09:18)
[2023-06-01] MEDS ORDERED: ROPIVACAINE HCL/PF 30 ML VIAL IJ ONE (09:23)
[2023-06-01] MEDS ORDERED: LACTATED RINGERS 1,000 ML IV SCH (09:30)
[2023-06-01] MEDS ORDERED: POLYETHYLENE GLYCOL 3350 17 GM PACKET PO PRN (09:40)
[2023-06-01] MEDS ORDERED: ACETAMINOPHEN 325 MG TABLET PO PRN (09:40)
[2023-06-01] MEDS ORDERED: HYDROmorphone 1 MG/ML SYRINGE IV PRN (09:40)
[2023-06-01] MEDS ORDERED: FLEETS ADULT 1 DOSE ENEMA PR PRN (09:40)
[2023-06-01] MEDS ORDERED: TRANEXAMIC ACID 1,000 MG/10 ML VIAL IV SCH (09:40)
[2023-06-01] MEDS ORDERED: BENZOCAINE/MENTHOL 1 LOZENGE PO PRN (09:40)
[2023-06-01] MEDS ORDERED: MAGNESIUM HYDROXIDE 30 ML ORAL.SUSP PO PRN (09:40)
[2023-06-01] MEDS ORDERED: BISACODYL 10 MG SUPP.RECT PR PRN (09:40)
[2023-06-01] MEDS ORDERED: ceFAZolin 2 GM in DEXTROSE 5% IN WATER 50 ML IV SCH (09:45)
[2023-06-01] MEDS: METOPROLOL TARTRATE 25 MG TABLET PO SCH ×2 (10:12→10:29)
[2023-06-01] MEDS: DOCUSATE SODIUM 100 MG CAPSULE PO SCH ×3 (10:12→21:55)
[2023-06-01] MEDS: BACLOFEN 10 MG TABLET PO SCH ×3 (10:13→21:52)
[2023-06-01] MEDS: CYANOCOBALAMIN (VITAMIN B-12) 500 MCG TABLET PO SCH ×3 (10:13→21:52)
[2023-06-01] MEDS: cefTRIAXone 1 GM VIAL IV SCH ×2 (10:13→10:28)
[2023-06-01] MEDS: 0.45 % SODIUM CHLORIDE 1,000 ML IV SCH ×3 (10:30→22:23)
[2023-06-01] MEDS ORDERED: 0.9 % SODIUM CHLORIDE 10 ML SYRINGE IV SCH (14:00)
[2023-06-01] MEDS: ceFAZolin 1 GM VIAL IV SCH (16:07)
[2023-06-01] MEDS: KETOROLAC 15 MG/ML VIAL IV PRN (16:39)
[2023-06-01] MEDS ORDERED: SENNOSIDES 1 TABLET PO PRN (21:00)
[2023-06-01] MEDS ORDERED: DOCUSATE SODIUM 100 MG CAPSULE PO SCH (21:00)
[2023-06-01] MEDS ORDERED: TEMAZEPAM 15 MG CAPSULE PO PRN (21:00)
[2023-06-01] MEDS: MONTELUKAST 10 MG TABLET PO SCH (21:49)
[2023-06-02] MEDS: ceFAZolin 1 GM VIAL IV SCH (00:34)
[2023-06-02] MEDS: hydrALAZINE 20 MG/ML VIAL IV PRN (03:06)
[2023-06-02] MEDS: KETOROLAC 15 MG/ML VIAL IV PRN ×2 (03:07→08:08)
[2023-06-02] MEDS: 0.45 % SODIUM CHLORIDE 1,000 ML IV SCH (04:41)
[2023-06-02] MEDS: 0.9 % SODIUM CHLORIDE 10 ML SYRINGE IV SCH (04:41)
[2023-06-02] MEDS: HYDROcodone/APAP 5/325MG TABLET PO PRN (06:50)
[2023-06-02] MEDS: LEVOTHYROXINE 25 MCG TABLET PO SCH (07:17)
[2023-06-02] MEDS: OMEPRAZOLE 20 MG CAPSULE PO SCH (07:17)
[2023-06-02] MEDS: LEVOTHYROXINE SODIUM 112 MCG TABLET PO SCH (07:18)
[2023-06-02 07:21] LABS: Hemoglobin 8.2 g/dL (11.2-15.7)
[2023-06-02 07:35] LABS: Blood Urea Nitrogen 40 mg/dL (8-23); Carbon Dioxide 20 mmol/L (22-30); Chloride 102 mmol/L (96-108); Glomerular Filtration Rate 77; Glucose 129 mg/dL (70-105)
[2023-06-02] MEDS: cefTRIAXone 1 GM VIAL IV SCH (08:01)
[2023-06-02] MEDS: CYANOCOBALAMIN (VITAMIN B-12) 500 MCG TABLET PO SCH (08:03)
[2023-06-02] MEDS: BACLOFEN 10 MG TABLET PO SCH (08:03)
[2023-06-02] MEDS: DOCUSATE SODIUM 100 MG CAPSULE PO SCH (08:03)
[2023-06-02] MEDS: METOPROLOL TARTRATE 25 MG TABLET PO SCH (08:04)
[2023-06-02 08:10] LABS: Homocysteine 18.6 umol/L (0.0-21.3)
[2023-06-02] MEDS ORDERED: ASPIRIN 81 MG TAB.CHEW CHEWED SCH ×2 (12:45→21:00)
[2023-06-02] MEDS ORDERED: APIXABAN 2.5 MG TABLET PO SCH (21:00)
== END 2023-06-02 13:45 | DRG 481 ==
LOC: ED 12:03 → MEDSUR 18:00
PROVIDERS: ADMIT Orthopaedic Surgery; ATTEND Internal Medicine

== ENCOUNTER 2024-03-02 07:59 | Inpatient (IN) ==
[2024-03-02] MEDS ORDERED: IOPAMIDOL 100 ML BOTTLE IV ONE (08:00)
[2024-03-02] MEDS: PANTOPRAZOLE 40 MG VIAL IV ONE (08:50)
[2024-03-02 09:02] LABS: Basophils # (Auto) 0.01 K/mcL (0.00-0.30); Basophils % (Auto) 0 % (0.0-2.0); Eosinophils # (Auto) 0.02 K/mcL (0.00-0.70); Eosinophils % (Auto) 0.1 % (0.0-7.0); Hemoglobin 13.6 g/dL (11.2-15.7); Lymphocytes # (Auto) 0.63 K/mcL (1.50-4.80); Lymphocytes % (Auto) 2.7 % (15.5-49.0); Mean Cell Volume 103.5 fL (80.0-100.0); Mean Corpuscular HGB Conc 33.2 g/dL (31.0-36.0); Mean Platelet Volume 8.9 fL (8.8-12.5); Monocytes # (Auto) 0.62 K/mcL (0.10-0.90); Monocytes % (Auto) 2.7 % (1.0-12.0); Neutrophils % (Auto) 94.3 % (38.0-78.0); Platelet Count 319 K/mcL (140-440); RBC 3.96 M/mcL (3.59-5.38); Red Cell Distribution Width 14.4 % (11.5-14.5); WBC 23.2 K/mcL (4.5-11.0)
[2024-03-02 09:19] LABS: ALT/SGPT < 5 U/L (<40); AST/SGOT 23 U/L (<32); Albumin/Globulin Ratio 0.9 (1.0-2.3); Alkaline Phosphatase 162 U/L (39-117); Bilirubin,Total 0.6 mg/dL (0.1-1.0); Blood Urea Nitrogen 23 mg/dL (8-23); Calcium 9.8 mg/dL (8.6-10.4); Carbon Dioxide 25 mmol/L (22-30); Chloride 91 mmol/L (96-108); Globulin 4.6 gm/dL (2.2-3.7); Glomerular Filtration Rate 57; Glucose 152 mg/dL (70-105); Sodium 131 mmol/L (133-145)
[2024-03-02] MEDS: CEFEPIME 2 GM VIAL IV ONE (09:50)
[2024-03-02] MEDS: SODIUM CHLORIDE IV ONE (09:50)
[2024-03-02] MEDS: metroNIDAZOLE 500 MG/100 ML BAG IV ONE (09:50)
[2024-03-02 09:53] LABS: Prothrombin Time 13.6 sec (11.9-14.5)
[2024-03-02] MEDS ORDERED: SENNOSIDES 1 TABLET PO PRN (15:07)
[2024-03-02] MEDS ORDERED: LACTULOSE 20 GM/30 ML ORAL.SOL PO PRN (15:07)
[2024-03-02] MEDS ORDERED: ONDANSETRON 4 MG/2 ML VIAL IV PRN (15:07)
[2024-03-02] MEDS ORDERED: ACETAMINOPHEN 1,000 MG/100 ML BAG IV PRN (15:07)
[2024-03-02] MEDS: metroNIDAZOLE 500 MG/100 ML BAG IV SCH (15:59)
[2024-03-02] MEDS: cefTRIAXone 1 GM VIAL IV SCH (16:39)
[2024-03-02] MEDS: AZITHROMYCIN 500 MG in 0.9 % SODIUM CHLORIDE 250 ML IV SCH (17:21)
[2024-03-02] MEDS: 0.9 % SODIUM CHLORIDE 10 ML SYRINGE IV SCH (18:30)
[2024-03-02] MEDS: DOCUSATE SODIUM 100 MG CAPSULE PO SCH (22:02)
[2024-03-03 06:45] LABS: Basophils # (Auto) 0.02 K/mcL (0.00-0.30); Basophils % (Auto) 0.2 % (0.0-2.0); Eosinophils # (Auto) 0.04 K/mcL (0.00-0.70); Eosinophils % (Auto) 0.5 % (0.0-7.0); Hematocrit 29.7 % (34.1-44.9); Lymphocytes # (Auto) 1.05 K/mcL (1.50-4.80); Lymphocytes % (Auto) 12.3 % (15.5-49.0); Mean Cell Volume 104.2 fL (80.0-100.0); Mean Corpuscular HGB Conc 33.7 g/dL (31.0-36.0); Mean Platelet Volume 9.1 fL (8.8-12.5); Monocytes # (Auto) 0.43 K/mcL (0.10-0.90); Neutrophils % (Auto) 81.8 % (38.0-78.0); Platelet Count 240 K/mcL (140-440); RBC 2.85 M/mcL (3.59-5.38); WBC 8.5 K/mcL (4.5-11.0)
[2024-03-03 06:47] LABS: ALT/SGPT < 5 U/L (<40); AST/SGOT 18 U/L (<32); Albumin 3.3 gm/dL (3.2-5.2); Alkaline Phosphatase 118 U/L (39-117); Bilirubin,Direct 0.2 mg/dL (<0.3); Bilirubin,Total 0.5 mg/dL (0.1-1.0); Blood Urea Nitrogen 24 mg/dL (8-23); Calcium 8.6 mg/dL (8.6-10.4); Carbon Dioxide 22 mmol/L (22-30); Chloride 100 mmol/L (96-108); Globulin 3.4 gm/dL (2.2-3.7); Glomerular Filtration Rate 65; Glucose 88 mg/dL (70-105); Lactate Dehydrogenase 176 U/L (135-225); Phosphorous 2.8 mg/dL (2.5-4.5); Sodium 133 mmol/L (133-145); Triglycerides 42 mg/dL (<150); Uric Acid 5.7 mg/dL (2.5-8.0)
[2024-03-03] MEDS: ENOXAPARIN 40 MG/0.4 ML SYRINGE SQ SCH (08:54)
[2024-03-03] MEDS ORDERED: POLYETHYLENE GLYCOL 3350 17 GM PACKET PO PRN (10:52)
[2024-03-03] MEDS: FUROSEMIDE 20 MG TABLET PO SCH (20:04)
[2024-03-03] MEDS: MONTELUKAST 10 MG TABLET PO SCH (20:05)
[2024-03-03] MEDS: BACLOFEN 10 MG TABLET PO SCH (20:05)
[2024-03-04 05:37] LABS: Basophils # (Auto) 0.02 K/mcL (0.00-0.30); Basophils % (Auto) 0.4 % (0.0-2.0); Eosinophils # (Auto) 0.13 K/mcL (0.00-0.70); Eosinophils % (Auto) 2.5 % (0.0-7.0); Hematocrit 29.6 % (34.1-44.9); Hemoglobin 9.7 g/dL (11.2-15.7); Lymphocytes # (Auto) 1.02 K/mcL (1.50-4.80); Lymphocytes % (Auto) 19.3 % (15.5-49.0); Mean Cell Volume 104.2 fL (80.0-100.0); Mean Corpuscular HGB Conc 32.8 g/dL (31.0-36.0); Mean Platelet Volume 9.2 fL (8.8-12.5); Monocytes # (Auto) 0.41 K/mcL (0.10-0.90); Monocytes % (Auto) 7.8 % (1.0-12.0); Neutrophils % (Auto) 69.2 % (38.0-78.0); Platelet Count 204 K/mcL (140-440); RBC 2.84 M/mcL (3.59-5.38); Red Cell Distribution Width 14.9 % (11.5-14.5); WBC 5.3 K/mcL (4.5-11.0)
[2024-03-04 06:02] LABS: ALT/SGPT < 5 U/L (<40); AST/SGOT 19 U/L (<32); Albumin 3.1 gm/dL (3.2-5.2); Albumin/Globulin Ratio 0.9 (1.0-2.3); Alkaline Phosphatase 114 U/L (39-117); Bilirubin,Direct < 0.2 mg/dL (0-0.3); Bilirubin,Total 0.4 mg/dL (0.1-1.0); Blood Urea Nitrogen 18 mg/dL (8-23); Calcium 8.6 mg/dL (8.6-10.4); Carbon Dioxide 23 mmol/L (22-30); Chloride 101 mmol/L (96-108); Globulin 3.6 gm/dL (2.2-3.7); Glomerular Filtration Rate 81; Glucose 92 mg/dL (70-105); Lactate Dehydrogenase 214 U/L (135-225); Phosphorous 2.6 mg/dL (2.5-4.5); Potassium 3.9 mmol/L (3.3-5.1); Sodium 134 mmol/L (133-145); Triglycerides 42 mg/dL (<150); Uric Acid 5.8 mg/dL (2.5-8.0)
[2024-03-04] MEDS: LEVOTHYROXINE 100 MCG TABLET PO SCH (08:16)
[2024-03-04] MEDS: METOPROLOL SUCCINATE 50 MG TAB.XL.24H PO SCH (10:28)
[2024-03-04] MEDS: FEXOFENADINE 180 MG TABLET PO SCH (10:28)
== END 2024-03-04 12:02 | DRG 393 ==
LOC: ED 07:59 → ICU 15:00
PROVIDERS: ADMIT Internal Medicine; ATTEND Internal Medicine